=== PATIENT | male | born 1935 | race Caucasian/White ===

== ENCOUNTER 2017-08-03 12:44 | Outpatient (POV) | payer MEDICARE, SELFPAY | END 2017-08-03 15:35 | disposition home or self-care (01) | PROVIDERS: Family Provider Family Medicine; PCP Family Medicine; Visit Provider Urology | DX: N40.1 Benign prostatic hyperplasia with lower urinary tract symptoms (principal); N39.41 Urge incontinence; R39.15 Urgency of urination | CPT/HCPCS: 99212 ==

== ENCOUNTER → 2017-08-25 12:16 | Outpatient (CLI) | payer MEDICARE, SELFPAY | PROVIDERS: PCP Family Medicine; Visit Provider Family Medicine | DX: I49.9 Cardiac arrhythmia, unspecified (principal) | CPT/HCPCS: 93225; 93226 ==

== ENCOUNTER → 2017-09-28 17:46 | Outpatient (REF) | payer MEDICARE, SELFPAY | LOC: LAB 17:46 | PROVIDERS: Visit Provider Urology | CPT/HCPCS: 87086 ==

== ENCOUNTER → 2017-09-30 08:48 | Outpatient (CLI) | payer MEDICARE, SELFPAY ==
--- NOTE | 2017-09-30 09:00 | CT_ITS ---
CT abdomen pelvis wo con CLINICAL INDICATION: Abdominal pain and pressure. History of colon cancer ITS.REASON: ABD PAIN, HX COLON CA ORDERING PHYSICIAN: Jefferson Jensen MD PATIENT AGE: 82 years COMPARISON: None TECHNIQUE: Axial images obtained with sagittal and coronal reformats. PROCEDURE: Oral Contrast: None IV Contrast: None . FINDINGS: Lower chest: Small medium-sized right pleural effusion with right basilar atelectasis/consolidation. Small left pleural effusion. Coronary artery calcifications. Abdomen and pelvis: Prior cholecystectomy. No focal liver lesion or biliary dilatation. The spleen and right adrenal gland are unremarkable. Left adrenal gland is enlarged measuring 3.4 x 2.8 cm previously measuring 3.1 x 2.4 cm and measuring near water density and could be due to an adenoma or an indolent metastatic focus. The right adrenal gland has an unremarkable appearance. There is pancreatic atrophy. Diffuse atherosclerotic calcification involves the splenic artery. 5 cm right renal cyst. No hydronephrosis or obstructing renal or ureteral calculi. 2.4 cm left renal cyst. No intestinal obstruction or free air. Unremarkable appendix. No evidence of diverticulitis. Urinary bladder is decompressed with minimal thickening of the wall nonspecific. Prostate is slightly prominent at 4.8 cm. There is a small right periumbilical hernia. This contains a loop of small bowel without evidence of obstruction or inflammation. No acute bony anomalies. There is generalized spondylosis of the lumbar spine. IMPRESSION: 1. Bilateral pleural effusions right basilar atelectasis/consolidation 2. Coronary artery calcification consistent coronary artery disease. 3. Slightly enlarging left adrenal nodule. This nodule has been present since 11/09/2012 with only slight increase in size since 09/01/2013 and similar in size compared to 11/09/2012. This could be due to an adenoma or a treated metastatic focus. 4. Small right periumbilical hernia containing a loop of small bowel without evidence of obstruction
== END ==
PROVIDERS: Family Provider Family Medicine; PCP Family Medicine; Visit Provider Urology
DX: R10.9 Unspecified abdominal pain (principal); Z85.038 Personal history of other malignant neoplasm of large intestine
CPT/HCPCS: 74176

== ENCOUNTER → 2017-10-01 16:03 | Outpatient (CLI) | payer MEDICARE, SELFPAY ==
--- NOTE | 2017-10-01 16:09 | XR_ITS ---
XR chest 2V HISTORY: ITS.REASON: CONGESTIVE HEART FAILURE ORDERING PHYSICIAN: Pedro Tenorio MD PATIENT AGE: 82 years COMPARISON: 11/09/2012 FINDINGS: There is mild cardiomegaly. No obvious CHF.. There is a small right pleural effusion with blunting of the right CP angle and mild atelectatic changes in the right lung base. There is ankylosis of the thoracic spine. No lobar consolidation or collapse. IMPRESSION: 1. Cardiomegaly. 2. Small right pleural effusion with right basilar atelectasis
== END ==
PROVIDERS: PCP Family Medicine; Visit Provider Family Medicine
DX: I50.9 Heart failure, unspecified (principal)
CPT/HCPCS: 71046

== ENCOUNTER 2017-12-14 12:20 | Outpatient (CLI) | payer MEDICARE, SELFPAY ==
[2017-12-14 13:05] VITALS: BP 137/70; PULSE 69; RESP 18; TEMP 36.6; O2SAT 97
[2017-12-14 13:35] VITALS: BP 132/67; PULSE 67; RESP 18; O2SAT 98
[2017-12-14 13:45] VITALS: BP 133/71; PULSE 68; RESP 18; TEMP 36.7; O2SAT 97
== END 2017-12-14 13:50 | disposition home or self-care (01) ==
LOC: INF 12:22
PROVIDERS: PCP Family Medicine; Visit Provider Family Medicine
DX: N39.0 Urinary tract infection, site not specified (principal)
CPT/HCPCS: 96365; J1335

== ENCOUNTER 2017-12-15 11:13 | Outpatient (CLI) | payer MEDICARE, SELFPAY ==
[2017-12-15 11:10] VITALS: BMI 38.0
[2017-12-15 11:36] LABS: Anion Gap 13.8 mEq/L (5-15); Blood Urea Nitrogen 38 mg/dL (7-18); Carbon Dioxide 24 mmol/L (21.0-32.0); Chloride 107 mmol/L (98-107); Creatinine Clearance Estimated 49 mL/min (0-300); Creatinine,Serum 2.08 mg/dL (0.70-1.30); Estimated Glomerular Filt Rate 31 ml/min (>60); GFR (African American) 37 ML/MIN (>60); Glucose 177 mg/dL (74-106); Potassium 4.8 mmoL/L (3.5-5.1); Sodium 140 mmol/L (136-145)
[2017-12-15 11:55] VITALS: BP 128/68; PULSE 63; RESP 18; TEMP 36.6; O2SAT 98
[2017-12-15 12:25] VITALS: BP 132/66; PULSE 60; RESP 18; O2SAT 99
[2017-12-15 12:40] VITALS: BP 130/69; PULSE 64; RESP 18; O2SAT 98
== END 2017-12-15 12:45 | disposition home or self-care (01) ==
LOC: INF 11:13
PROVIDERS: Family Provider Family Medicine; PCP Family Medicine; Visit Provider Family Medicine
DX: N39.0 Urinary tract infection, site not specified (principal)
CPT/HCPCS: 36415; 80048; 96365; J1335

== ENCOUNTER 2017-12-16 11:00 | Outpatient (CLI) | payer MEDICARE, SELFPAY ==
[2017-12-16 11:15] VITALS: BP 142/59; PULSE 61; RESP 18; TEMP 36.6; O2SAT 95
[2017-12-16 12:05] VITALS: BP 120/64; PULSE 65; RESP 18; TEMP 36.6; O2SAT 96
== END 2017-12-16 12:15 | disposition home or self-care (01) ==
LOC: INF 11:00
PROVIDERS: Family Provider Family Medicine; PCP Family Medicine; Visit Provider Family Medicine
DX: N39.0 Urinary tract infection, site not specified (principal)
CPT/HCPCS: 96365; J1335

== ENCOUNTER 2017-12-17 11:00 | Outpatient (CLI) | payer MEDICARE, SELFPAY ==
[2017-12-17 11:55] VITALS: BP 105/65; PULSE 66; RESP 20; TEMP 36.9; O2SAT 96
[2017-12-17 12:25] VITALS: BP 106/55; PULSE 68; RESP 20; TEMP 36.9; O2SAT 96
== END 2017-12-17 16:30 | disposition home or self-care (01) ==
LOC: INF 11:39
PROVIDERS: Family Provider Family Medicine; PCP Family Medicine; Visit Provider Family Medicine
DX: N39.0 Urinary tract infection, site not specified (principal)
CPT/HCPCS: 96365; J1335

== ENCOUNTER 2017-12-18 11:00 | Outpatient (CLI) | payer MEDICARE, SELFPAY ==
[2017-12-18 11:15] VITALS: BP 119/61; PULSE 56; RESP 20; TEMP 36.4; O2SAT 97
== END 2017-12-18 11:45 | disposition home or self-care (01) ==
LOC: INF 11:02
PROVIDERS: Family Provider Family Medicine; PCP Family Medicine; Visit Provider Family Medicine
DX: N39.0 Urinary tract infection, site not specified (principal)
CPT/HCPCS: 96365; J1335

== ENCOUNTER 2017-12-19 10:50 | Outpatient (CLI) | payer MEDICARE, SELFPAY ==
[2017-12-19 10:55] VITALS: BP 136/58; PULSE 59; RESP 18; TEMP 36.1; O2SAT 99
== END 2017-12-19 12:07 | disposition home or self-care (01) ==
LOC: INF 10:51
PROVIDERS: Family Provider Family Medicine; PCP Family Medicine; Visit Provider Family Medicine
DX: N39.0 Urinary tract infection, site not specified (principal)
CPT/HCPCS: 96365; J1335

== ENCOUNTER 2017-12-20 11:15 | Outpatient (CLI) | payer MEDICARE, SELFPAY ==
[2017-12-20 11:30] VITALS: BP 150/72; PULSE 84; RESP 18; TEMP 36.4; O2SAT 100
[2017-12-20 12:00] VITALS: BP 146/71; PULSE 81; RESP 18; O2SAT 98
[2017-12-20 12:20] VITALS: BP 139/70; PULSE 83; RESP 18; O2SAT 99
== END 2017-12-20 12:25 | disposition home or self-care (01) ==
LOC: INF 11:15
PROVIDERS: Family Provider Family Medicine; PCP Family Medicine; Visit Provider Family Medicine
DX: N39.0 Urinary tract infection, site not specified (principal)
CPT/HCPCS: 96365; J1335

== ENCOUNTER 2018-08-16 10:43 | Outpatient (CLI) | payer MEDICARE, SELFPAY ==
[2018-08-16 11:05] VITALS: BMI 38.7
[2018-08-16 11:55] VITALS: BP 153/87; PULSE 87; RESP 18; TEMP 36.6; O2SAT 96
[2018-08-16 12:05] LABS: Creatinine Clearance Estimated 54 mL/min (50-200); Creatinine,Serum 1.91 mg/dL (0.70-1.30); Estimated Glomerular Filt Rate 34 ml/min (>60); GFR (African American) 41 ML/MIN (>60)
[2018-08-16 12:25] VITALS: BP 150/82; PULSE 88; RESP 18; O2SAT 97
[2018-08-16 12:40] VITALS: BP 151/88; PULSE 84; RESP 18; O2SAT 97
== END 2018-08-16 12:45 | disposition home or self-care (01) ==
LOC: INF 10:47
PROVIDERS: PCP Family Medicine; Visit Provider Family Medicine
DX: N39.0 Urinary tract infection, site not specified (principal)
CPT/HCPCS: 82565; 96365; J1335

== ENCOUNTER 2018-08-17 10:40 | Outpatient (CLI) | payer MEDICARE, SELFPAY ==
[2018-08-17 11:00] VITALS: BP 143/85; PULSE 78; RESP 18; TEMP 36.4
[2018-08-17 11:30] VITALS: BP 142/79; PULSE 78; RESP 18
[2018-08-17 11:40] VITALS: BP 155/99; PULSE 84; RESP 18
== END 2018-08-17 12:15 | disposition home or self-care (01) ==
LOC: INF 10:50
PROVIDERS: Visit Provider Family Medicine
DX: N39.0 Urinary tract infection, site not specified (principal)
CPT/HCPCS: 96365; J1335

== ENCOUNTER 2018-08-18 10:50 | Outpatient (CLI) | payer MEDICARE, SELFPAY ==
[2018-08-18 11:25] VITALS: BP 133/85; PULSE 86; RESP 18; O2SAT 95
[2018-08-18 11:55] VITALS: BP 152/80; PULSE 82; RESP 18; O2SAT 95
[2018-08-18 12:25] VITALS: BP 152/82; PULSE 82; RESP 18; O2SAT 95
[2018-08-18 12:30] VITALS: BP 155/87; PULSE 87; RESP 18
== END 2018-08-18 12:30 | disposition home or self-care (01) ==
LOC: INF 11:12
PROVIDERS: Visit Provider Family Medicine
DX: N39.0 Urinary tract infection, site not specified (principal)
CPT/HCPCS: 96365; J1335

== ENCOUNTER 2018-08-19 11:34 | Outpatient (CLI) | payer MEDICARE, SELFPAY ==
[2018-08-19 11:35] VITALS: BP 120/74; PULSE 68; RESP 20; TEMP 36.9; O2SAT 95
[2018-08-19 12:45] VITALS: BP 118/74; PULSE 68; RESP 20; TEMP 36.9; O2SAT 95
== END 2018-08-19 13:10 | disposition home or self-care (01) ==
LOC: INF 11:34
PROVIDERS: Visit Provider Family Medicine
DX: N39.0 Urinary tract infection, site not specified (principal)
CPT/HCPCS: 96365; J1335

== ENCOUNTER → 2018-08-20 11:16 | Outpatient (CLI) | payer MEDICARE, SELFPAY ==
[2018-08-20 11:16] VITALS: BP 137/81; PULSE 84; RESP 16; TEMP 36.7; O2SAT 97
[2018-08-20 11:30] VITALS: BP 149/74; PULSE 88; RESP 16; TEMP 36.6; O2SAT 98
== END ==
PROVIDERS: PCP Family Medicine; Visit Provider Family Medicine
DX: N39.0 Urinary tract infection, site not specified (principal)
CPT/HCPCS: 96365; J1335

== ENCOUNTER → 2018-08-21 11:21 | Outpatient (CLI) | payer MEDICARE, SELFPAY ==
[2018-08-21 11:21] VITALS: BP 141/79; PULSE 85; RESP 18; O2SAT 97
[2018-08-21 11:40] VITALS: BP 153/83; PULSE 86; RESP 18; TEMP 36.6; O2SAT 96
[2018-08-21 12:00] VITALS: BMI 43.8
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
[2018-08-21 12:16] LABS: Basophils # 0.1 K/mm3 (0-0.2); Eosinophils # 0.2 K/mm3 (0.0-0.4); Eosinophils % 2.2 % (0.1-12.0); Hematocrit 37.7 % (42.0-52.0); Hemoglobin 11.7 g/dL (14.1-18.0); Lymphocytes # 1.3 K/mm3 (0.7-4.5); Lymphocytes % 15.9 % (10-50); Mean Corpuscular HGB Conc 31.1 g/dL (31.8-35.4); Mean Platelet Volume 11.5 fl (7.4-10.4); Monocytes # 0.7 K/mm3 (0.1-1.0); Monocytes % 8.9 % (1.7-9.3); Neutrophils # 5.8 K/mm3 (1.8-7.8); Platelet Count 92 K/mm3 (142-424); Red Blood Count 4.19 M/mm3 (4.60-6.20); Red Cell Distribution Width 16.8 % (11.5-17.5); White Blood Count 8.1 K/mm3 (4.8-10.8)
[2018-08-21 12:27] LABS: Alanine Aminotransferase 19 U/L (12-78); Albumin Level 3.6 gm/dL (3.4-5.0); Albumin/Globulin Ratio 0.9 (1.1-1.8); Alkaline Phosphatase 122 U/L (46-116); Anion Gap 13.3 mEq/L (5-15); Aspartate Amino Transferase 15 U/L (15-37); Bilirubin,Total 0.5 mg/dL (0.2-1.0); Blood Urea Nitrogen 28 mg/dL (7-18); Calcium 8.9 mg/dL (8.5-10.1); Carbon Dioxide 27 mmol/L (21.0-32.0); Chloride 102 mmol/L (98-107); Creatinine Clearance Estimated 26 mL/min (50-200); Creatinine,Serum 1.99 mg/dL (0.70-1.30); Estimated Glomerular Filt Rate 32 ml/min (>60); GFR (African American) 39 ML/MIN (>60); Globulin 3.8 gm/dl (1.3-3.2); Glucose 222 mg/dL (74-106); Potassium 4.3 mmoL/L (3.5-5.1); Sodium 138 mmol/L (136-145); Total Protein,Serum 7.4 gm/dL (6.4-8.2)
== END ==
PROVIDERS: Internal Medicine Adolescent Medicine; PCP Family Medicine; Visit Provider Family Medicine
DX: N39.0 Urinary tract infection, site not specified (principal); R53.1 Weakness
CPT/HCPCS: 80053; 85025; 96365; G0463; J1335

== ENCOUNTER 2018-08-22 11:43 | Outpatient (CLI) | payer MEDICARE, SELFPAY ==
[2018-08-22 12:16] VITALS: BP 118/62; PULSE 87; RESP 18; TEMP 36.9; O2SAT 94
[2018-08-22 12:46] VITALS: BP 121/64; PULSE 84; RESP 18; O2SAT 95
[2018-08-22 13:00] VITALS: BP 119/61; PULSE 81; RESP 18; O2SAT 95
== END 2018-08-22 13:00 | disposition home or self-care (01) ==
LOC: INF 11:43
PROVIDERS: Visit Provider Family Medicine
DX: N39.0 Urinary tract infection, site not specified (principal)
CPT/HCPCS: 96365; J1335

== ENCOUNTER → 2018-09-27 10:59 | Outpatient (CLI) | payer MEDICARE, SELFPAY ==
--- NOTE | 2018-09-27 11:05 | XR_ITS ---
XR chest 2V HISTORY: Shortness of air, wheezing ITS.REASON: SOB ORDERING PHYSICIAN: Kannan Cook MD PATIENT AGE: 83 years COMPARISON: 10/01/2017 FINDINGS: There is cardiomegaly without failure. Right-sided pleural effusion/thickening once again noted and has progressed compared to the previous study. There is increased density right lung base which may related to compressive atelectasis. The left lung is clear. No acute bony findings. IMPRESSION: Increase in size right pleural effusion with right basilar atelectasis and cardiomegaly
== END ==
PROVIDERS: PCP Family Medicine; Visit Provider Family Medicine
DX: R06.02 Shortness of breath (principal)
CPT/HCPCS: 71046

== ENCOUNTER → 2018-10-07 10:06 | Outpatient (CLI) | payer MEDICARE, SELFPAY ==
--- NOTE | 2018-10-07 11:30 | CT_ITS ---
CT chest wo con HISTORY: Cough, shortness of air, chest pain ITS.REASON: SOA ORDERING PHYSICIAN: Kannan Cook MD PATIENT AGE: 83 years COMPARISON: 09/27/2018 Technique: Axial images obtained following without contrast.. Sagittal, and coronal and 3-D reformatted images are also generated and reviewed. All CT scans at the facility use one or more dose reduction, viz: automated exposure control, ma/kV adjustment per patient size (including targeted exams where dose is matched to indication, i.e. head), or iterative reconstruction technique. FINDINGS: No mediastinal or hilar mass or adenopathy. Coronary artery calcifications are present. No pericardial effusion. There is a medium-sized right pleural effusion with atelectatic changes in the right lung base. Consolidation and/or atelectatic changes present in the right lower lobe posteriorly. Calcified granuloma is present in the left lower lobe with minimal atelectasis or fibrosis in the lingula. 3-D images of the ribs show an old left fourth rib fracture anteriorly. There are degenerative changes in the thoracic spine. Upper abdominal images show diffuse calcification of the splenic artery. There is been prior cholecystectomy. No evidence of aortic aneurysm. IMPRESSION: 1. Medium-sized right pleural effusion with right basilar atelectasis/consolidation 2. Old left fourth rib fracture. 3. Coronary artery disease
== END ==
PROVIDERS: PCP Family Medicine; Visit Provider Family Medicine
DX: R06.02 Shortness of breath (principal)
CPT/HCPCS: 71250

== ENCOUNTER → 2018-10-25 09:21 | Outpatient (CLI) | payer MEDICARE, SELFPAY ==
--- NOTE | 2018-10-25 09:26 | XR_ITS ---
XR chest 2V HISTORY: Shortness of breath ITS.REASON: SOB ORDERING PHYSICIAN: Kannan Cook MD PATIENT AGE: 83 years COMPARISON: 28/09/1918 FINDINGS: The cardiomediastinal silhouette and pulmonary vascularity are within normal limits. There is increasing density at the right lung with increasing sized loculated effusion. The pleural thickening is greater in the right apex and in the right lung base laterally compared to the previous exam. There is increased density in the right lower lobe which may be related to underlying consolidation or atelectatic change.. The left lung is clear. No acute bony abnormalities. IMPRESSION: Enlarging right pleural effusion with suggestion of loculation along the lateral and superior hemithorax with increasing right lower lobe atelectasis or infiltrate
== END ==
PROVIDERS: PCP Family Medicine; Visit Provider Family Medicine
DX: R06.02 Shortness of breath (principal)
CPT/HCPCS: 71046

== ENCOUNTER → 2018-11-09 10:31 | Outpatient (CLI) | payer MEDICARE, SELFPAY ==
--- NOTE | 2018-11-09 10:38 | XR_ITS ---
XR chest 2V HISTORY: Shortness of breath ITS.REASON: PULMONARY ASPIRATION Z87.09 ORDERING PHYSICIAN: Kannan Cook MD PATIENT AGE: 83 years COMPARISON: PA and lateral chest 10/25/2018 FINDINGS: The lung carbajal are well expanded. There is diffuse opacity right hilar region and right lower lung field similar to the previous study however there has been interval decrease in size of the somewhat loculated pleural effusion seen along the right chest wall on the previous study. Minimal fluid remains in the right costophrenic angle. Infiltrate still remains in right lower lobe and may be minimal right middle lobe infiltrate as well. The right lung field left lung field are clear. Cardiac size is normal and the vascularity is normal. IMPRESSION: Persistent right perihilar and right lower lobe pneumonia with possible right middle lobe infiltrate as well along with small right pleural effusion but there has been some decrease in size of the pleural effusion from the previous study
== END ==
PROVIDERS: PCP Family Medicine; Visit Provider Family Medicine
DX: Z87.09 Personal history of other diseases of the respiratory system (principal)
CPT/HCPCS: 71046

== ENCOUNTER → 2018-11-16 08:20 | Outpatient (CLI) | payer MEDICARE, SELFPAY ==
--- NOTE | 2018-11-16 08:23 | CT_ITS ---
CT chest wo con HISTORY: Colon cancer, pleural effusion ITS.REASON: PLEURAL EFFUSION ORDERING PHYSICIAN: Zenon Booker MD PATIENT AGE: 83 years COMPARISON: 10/07/2018 Technique: Axial images obtained following the administration of 75 mL of Optiray 350 . Sagittal, and coronal reformatted images are also generated and reviewed. All CT scans at the facility use one or more dose reduction, viz: automated exposure control, ma/kV adjustment per patient size (including targeted exams where dose is matched to indication, i.e. head), or iterative reconstruction technique. FINDINGS: There are scattered small nodes within the mediastinum as before. There are coronary artery calcifications. Normal heart size. No evidence of pericardial effusion. Small right-sided pleural effusion with consolidation/volume loss of the right lower lobe once again noted having a somewhat oval contour in the right lung base posteriorly and may be related to rounded atelectasis somewhat similar compared to the previous exam. Atelectatic or fibrotic changes are present in the right middle lobe and there is pleural thickening in the right lung base anteriorly. The pleural effusion is slightly smaller.. Left lung remains clear. There is calcified granuloma in the left lower lobe IMPRESSION: Persistent but slightly improved right-sided pleural effusion with persistent consolidation/rounded atelectasis in the right lower lobe posteriorly. There remains pleural thickening in the right lung base anteriorly not significant changed.
== END ==
PROVIDERS: PCP Family Medicine; Visit Provider Thoracic Surgery (Cardiothoracic Vascular Surgery)
DX: J90 Pleural effusion, not elsewhere classified (principal)
CPT/HCPCS: 71250

== ENCOUNTER 2018-12-07 09:05 | Outpatient (CLI) | payer MEDICARE, SELFPAY ==
[2018-12-07] VITALS (18 sets, daily range): BP systolic 106–138; BP diastolic 45–79; PULSE 72–83; RESP 16–18; TEMP 36.4–36.9; BMI 36.6
[2018-12-07 10:03] LABS: Hematocrit 24.4 % (42.0-52.0); Hemoglobin 8.1 g/dL (14.1-18.0)
--- NOTE | 2018-12-07 11:48 | PC.NURSE ---
1140 - TRANSFUSION STARTED AT 100 ML/HR AT THIS TIME.
--- NOTE | 2018-12-07 12:29 | PC.NURSE ---
1210 - INCREASED RATE TO 150 ML/HR AT THIS TIME.
--- NOTE | 2018-12-07 12:53 | PC.NURSE ---
1240 - INCREASED RATE TO 200 ML/HR AT THIS TIME.
--- NOTE | 2018-12-07 14:03 | PC.NURSE ---
1400 - TRANSFUSION RATE AT 100 ML/HR AT THIS TIME.
--- NOTE | 2018-12-07 14:37 | PC.NURSE ---
1430 - INCREASED RATE TO 150 ML/HR AT THIS TIME.
--- NOTE | 2018-12-07 15:17 | PC.NURSE ---
1500 - INCREASED RATE TO 200 ML/HR AT THIS TIME.
[2018-12-07 17:19] LABS: Hematocrit 27.6 % (42.0-52.0)
[2018-12-07 17:20] LABS: Hemoglobin 9.6 g/dL (14.1-18.0)
== END 2018-12-07 17:05 | disposition home or self-care (01) ==
LOC: INF 09:14
PROVIDERS: Visit Provider Family Medicine
DX: D64.9 Anemia, unspecified (principal)
CPT/HCPCS: 36430; 85014; 85018; 86850; P9016

== ENCOUNTER 2018-12-27 12:48 | Outpatient (CLI) | payer MEDICARE, SELFPAY ==
[2018-12-27 15:06] VITALS: BMI 38.0
--- NOTE | 2018-12-27 15:08 | XR_ITS ---
XR chest portable HISTORY: ITS.REASON: picc line placement ORDERING PHYSICIAN: Referral Provider, PATIENT AGE: 83 years COMPARISON: 11/09/2018 FINDINGS: Left upper extremity PICC line is present with the tip in the region of the superior vena cava. There remains cardiomegaly with right lower lobe atelectasis or infiltrate with effusion slightly improved. Left lung is clear. IMPRESSION: PICC line tip in region of the superior vena cava. Slight improvement in the right lower lobe airspace disease with effusion
--- NOTE | 2018-12-27 15:31 | PC.NURSE ---
Spoke with Dr Thompson at [id number]. Dr Thompson verified pt PICC is in good placement.
[2018-12-27 15:32] VITALS: BP 165/95; PULSE 97; RESP 18; TEMP 36.6; O2SAT 98
[2018-12-27 16:02] VITALS: BP 159/91; PULSE 91; RESP 18; O2SAT 97
[2018-12-27 16:06] LABS: Anion Gap 13.5 mEq/L (5-15); Blood Urea Nitrogen 23 mg/dL (7-18); Calcium 8.4 mg/dL (8.5-10.1); Carbon Dioxide 25 mmol/L (21.0-32.0); Chloride 101 mmol/L (98-107); Creatinine Clearance Estimated 61 mL/min (50-200); Creatinine,Serum 1.66 mg/dL (0.70-1.30); Estimated Glomerular Filt Rate 40 ml/min (>60); GFR (African American) 48 ML/MIN (>60); Glucose 370 mg/dL (74-106); Potassium 3.5 mmoL/L (3.5-5.1); Sodium 136 mmol/L (136-145)
[2018-12-27 16:20] VITALS: BP 161/89; PULSE 90; RESP 18; O2SAT 97
== END 2018-12-27 16:20 | disposition home or self-care (01) ==
LOC: INF 12:48
PROVIDERS: Referring Provider Internal Medicine Infectious Disease
DX: N39.0 Urinary tract infection, site not specified (principal)
CPT/HCPCS: 36569; 71045; 80048; 96365; C1751; J1335

== ENCOUNTER → 2018-12-28 13:07 | Outpatient (CLI) | payer MEDICARE, SELFPAY ==
[2018-12-28 13:35] VITALS: BP 159/83; PULSE 90; RESP 20; O2SAT 94
== END ==
PROVIDERS: Visit Provider Internal Medicine Infectious Disease
DX: N39.0 Urinary tract infection, site not specified (principal)
CPT/HCPCS: 96365; J1335

== ENCOUNTER 2018-12-29 11:25 | Outpatient (CLI) | payer MEDICARE, SELFPAY ==
[2018-12-29 11:45] VITALS: BP 105/68; PULSE 80; RESP 18; O2SAT 97
[2018-12-29 12:15] VITALS: BP 134/86; PULSE 92; RESP 18
[2018-12-29 12:40] VITALS: BP 127/71; PULSE 86; RESP 18
== END 2018-12-29 12:55 | disposition home or self-care (01) ==
LOC: INF 11:32
PROVIDERS: Visit Provider Internal Medicine Infectious Disease
DX: N39.0 Urinary tract infection, site not specified (principal)
CPT/HCPCS: 96365; J1335

== ENCOUNTER 2018-12-30 11:15 | Outpatient (CLI) | payer MEDICARE, SELFPAY ==
[2018-12-30 11:55] VITALS: BP 127/74; PULSE 85; RESP 20; O2SAT 95
[2018-12-30 12:50] VITALS: BP 130/74; PULSE 86; RESP 20
== END 2018-12-30 12:50 | disposition home or self-care (01) ==
LOC: INF 11:18
PROVIDERS: Visit Provider Internal Medicine Infectious Disease
DX: N39.0 Urinary tract infection, site not specified (principal)
CPT/HCPCS: 96365; J1335

== ENCOUNTER 2018-12-31 10:59 | Outpatient (CLI) | payer MEDICARE, SELFPAY ==
[2018-12-31 11:16] VITALS: BP 148/86; PULSE 85; RESP 18; TEMP 36.8; O2SAT 98
[2018-12-31 12:35] VITALS: BP 179/80; PULSE 96; RESP 20; O2SAT 95
== END 2018-12-31 12:35 | disposition home or self-care (01) ==
LOC: INF 11:02
PROVIDERS: PCP Family Medicine; Visit Provider Internal Medicine Infectious Disease
DX: N39.0 Urinary tract infection, site not specified (principal)
CPT/HCPCS: 96365; J1335

== ENCOUNTER → 2019-01-01 11:02 | Outpatient (CLI) | payer MEDICARE, SELFPAY ==
[2019-01-01 11:30] VITALS: BP 130/70; PULSE 67; RESP 18; O2SAT 97
[2019-01-01 12:48] VITALS: BP 135/70; PULSE 70; RESP 18; O2SAT 97
== END ==
PROVIDERS: Visit Provider Internal Medicine Infectious Disease
DX: N39.0 Urinary tract infection, site not specified (principal)
CPT/HCPCS: 96365; J1335

== ENCOUNTER → 2019-01-02 10:26 | Outpatient (CLI) | payer MEDICARE, SELFPAY ==
[2019-01-02 10:47] VITALS: BP 129/79; PULSE 78; RESP 16; TEMP 36.6; O2SAT 98; BMI 36.8
[2019-01-02 12:01] VITALS: BP 142/72; PULSE 89; RESP 18; TEMP 36.7; O2SAT 95
== END ==
PROVIDERS: PCP Family Medicine; Visit Provider Family Medicine
DX: N39.0 Urinary tract infection, site not specified (principal)
CPT/HCPCS: 96365; G0463; J1335

== ENCOUNTER 2019-01-03 09:15 | Outpatient (CLI) | payer MEDICARE, SELFPAY ==
[2019-01-03 09:05] VITALS: BP 141/72; PULSE 77; RESP 18; TEMP 36.6; O2SAT 97
[2019-01-03 09:19] VITALS: BMI 36.8
[2019-01-03 09:36] LABS: Anion Gap 14.8 mEq/L (5-15); Blood Urea Nitrogen 21 mg/dL (7-18); Calcium 8.3 mg/dL (8.5-10.1); Carbon Dioxide 25 mmol/L (21.0-32.0); Chloride 104 mmol/L (98-107); Creatinine Clearance Estimated 55 mL/min (50-200); Creatinine,Serum 1.76 mg/dL (0.70-1.30); Estimated Glomerular Filt Rate 37 ml/min (>60); GFR (African American) 45 ML/MIN (>60); Glucose 213 mg/dL (74-106); Potassium 3.8 mmoL/L (3.5-5.1); Sodium 140 mmol/L (136-145)
[2019-01-03 10:08] VITALS: BP 130/73; PULSE 78; RESP 18; TEMP 36.6; O2SAT 97
[2019-01-03 11:02] VITALS: BP 142/90; PULSE 78; RESP 18; TEMP 36.6; O2SAT 97
== END 2019-01-03 11:02 | disposition home or self-care (01) ==
LOC: INF 09:15
PROVIDERS: Visit Provider Internal Medicine Infectious Disease
DX: N39.0 Urinary tract infection, site not specified (principal)
CPT/HCPCS: 80048; 96365; J1335

== ENCOUNTER 2019-01-04 11:05 | Outpatient (CLI) | payer MEDICARE, SELFPAY ==
[2019-01-04 11:15] VITALS: BP 137/73; PULSE 84; RESP 18; TEMP 36.5; O2SAT 96
[2019-01-04 11:45] VITALS: BP 131/71; PULSE 88; RESP 18; O2SAT 97
[2019-01-04 12:00] VITALS: BP 138/76; PULSE 86; RESP 18; O2SAT 97
== END 2019-01-04 12:00 | disposition home or self-care (01) ==
LOC: INF 11:08
PROVIDERS: Visit Provider Internal Medicine Infectious Disease
DX: N39.0 Urinary tract infection, site not specified (principal)
CPT/HCPCS: 96365; J1335

== ENCOUNTER 2019-01-05 11:20 | Outpatient (CLI) | payer MEDICARE, SELFPAY ==
[2019-01-05 11:10] VITALS: BP 147/66; PULSE 82; RESP 18; TEMP 36.6; O2SAT 94
[2019-01-05 11:32] VITALS: BMI 36.8
[2019-01-05 11:35] VITALS: BP 110/63; PULSE 81; RESP 18; TEMP 36.6; O2SAT 95
[2019-01-05 12:06] VITALS: BP 136/68; PULSE 81; RESP 18; O2SAT 93
[2019-01-05 12:39] VITALS: BP 132/77; PULSE 81; RESP 18; O2SAT 94
== END 2019-01-05 12:39 | disposition home or self-care (01) ==
LOC: INF 11:28
PROVIDERS: Visit Provider Internal Medicine Infectious Disease
DX: N39.0 Urinary tract infection, site not specified (principal); B96.29 Other Escherichia coli [E. coli] as the cause of diseases classified elsewhere; J90 Pleural effusion, not elsewhere classified; J94.2 Hemothorax; D72.823 Leukemoid reaction; D62 Acute posthemorrhagic anemia; E11.22 Type 2 diabetes mellitus with diabetic chronic kidney disease; I12.9 Hypertensive chronic kidney disease with stage 1 through stage 4 chronic kidney disease, or unspecified chronic kidney disease; N18.3 Chronic kidney disease, stage 3 (moderate); E66.09 Other obesity due to excess calories
CPT/HCPCS: 96365; J1335

== ENCOUNTER 2019-01-06 11:20 | Outpatient (CLI) | payer MEDICARE, SELFPAY ==
[2019-01-06 12:15] VITALS: BP 161/73; PULSE 84; RESP 16; O2SAT 96
[2019-01-06 13:15] VITALS: BP 149/76; PULSE 82; RESP 18; O2SAT 97
== END 2019-01-06 13:09 | disposition home or self-care (01) ==
LOC: INF 11:27
PROVIDERS: Visit Provider Internal Medicine Infectious Disease
DX: N39.0 Urinary tract infection, site not specified (principal); B96.20 Unspecified Escherichia coli [E. coli] as the cause of diseases classified elsewhere; J90 Pleural effusion, not elsewhere classified; J94.2 Hemothorax; D72.823 Leukemoid reaction; E11.22 Type 2 diabetes mellitus with diabetic chronic kidney disease; I12.9 Hypertensive chronic kidney disease with stage 1 through stage 4 chronic kidney disease, or unspecified chronic kidney disease; N18.3 Chronic kidney disease, stage 3 (moderate); E66.09 Other obesity due to excess calories; D62 Acute posthemorrhagic anemia
CPT/HCPCS: 96365; J1335

== ENCOUNTER → 2019-01-07 11:10 | Outpatient (CLI) | payer MEDICARE, SELFPAY ==
[2019-01-07 11:10] VITALS: BP 152/76; PULSE 71; RESP 18; TEMP 36.8; O2SAT 99
[2019-01-07 11:36] VITALS: BP 152/76; PULSE 71; RESP 18; TEMP 36.8; O2SAT 99; BMI 27.1
== END ==
PROVIDERS: Visit Provider Internal Medicine Infectious Disease
DX: N39.0 Urinary tract infection, site not specified (principal); Z16.12 Extended spectrum beta lactamase (ESBL) resistance
CPT/HCPCS: 96365; J1335

== ENCOUNTER → 2019-01-08 11:13 | Outpatient (CLI) | payer MEDICARE, SELFPAY ==
[2019-01-08 11:14] VITALS: BP 145/61; BP 156/69; PULSE 79; PULSE 81; RESP 16; RESP 18; TEMP 36.6; TEMP 36.9; O2SAT 96; O2SAT 97
== END ==
PROVIDERS: PCP Internal Medicine Infectious Disease; Visit Provider Internal Medicine Infectious Disease
DX: N39.0 Urinary tract infection, site not specified (principal); Z16.12 Extended spectrum beta lactamase (ESBL) resistance
CPT/HCPCS: 96365; J1335

== ENCOUNTER 2019-01-09 11:19 | Outpatient (CLI) | payer MEDICARE, SELFPAY ==
[2019-01-09 11:26] VITALS: BP 154/76; PULSE 83; RESP 18; TEMP 36.5; O2SAT 96
[2019-01-09 11:56] VITALS: BP 151/72; PULSE 81; RESP 18; O2SAT 97
[2019-01-09 12:17] VITALS: BMI 36.8
[2019-01-09 12:20] VITALS: BP 150/79; PULSE 80; RESP 18; O2SAT 97
[2019-01-09 12:32] LABS: Basophils # 0.1 K/mm3 (0-0.2); Basophils % 0.7 % (0.1-2.0); Eosinophils # 0.2 K/mm3 (0.0-0.4); Eosinophils % 2.9 % (0.1-12.0); Hematocrit 30.5 % (42.0-52.0); Hemoglobin 10.4 g/dL (14.1-18.0); Lymphocytes # 1.1 K/mm3 (0.7-4.5); Lymphocytes % 16.6 % (10-50); Mean Corpuscular HGB Conc 34.2 g/dL (31.8-35.4); Mean Corpuscular Hemoglobin 28.8 pg (27.0-31.2); Mean Corpuscular Volume 84.1 fl (80-94); Mean Platelet Volume 11.4 fl (7.4-10.4); Monocytes # 0.9 K/mm3 (0.1-1.0); Monocytes % 12.7 % (1.7-9.3); Neutrophils # 4.7 K/mm3 (1.8-7.8); Neutrophils % 67.2 % (37.0-80.0); Red Blood Count 3.63 M/mm3 (4.60-6.20); Red Cell Distribution Width 16.4 % (11.5-17.5); White Blood Count 6.9 K/mm3 (4.8-10.8)
[2019-01-09 12:50] LABS: Alanine Aminotransferase 17 U/L (12-78); Albumin Level 2.8 gm/dL (3.4-5.0); Albumin/Globulin Ratio 0.7 (1.1-1.8); Alkaline Phosphatase 136 U/L (46-116); Aspartate Amino Transferase 16 U/L (15-37); Bilirubin,Total 0.3 mg/dL (0.2-1.0); Blood Urea Nitrogen 21 mg/dL (7-18); C-Reactive Protein 3.5 mg/L (0.0-0.9); Calcium 8.4 mg/dL (8.5-10.1); Carbon Dioxide 26 mmol/L (21.0-32.0); Chloride 102 mmol/L (98-107); Creatinine Clearance Estimated 55 mL/min (50-200); Creatinine,Serum 1.78 mg/dL (0.70-1.30); Estimated Glomerular Filt Rate 37 ml/min (>60); GFR (African American) 44 ML/MIN (>60); Globulin 3.9 gm/dl (1.3-3.2); Glucose 325 mg/dL (74-106); Sodium 137 mmol/L (136-145); Total Protein,Serum 6.7 gm/dL (6.4-8.2)
[2019-01-09 13:33] LABS: Erythrocyte Sedimentation Rate 90 mm/hr (0-20)
[2019-01-09 13:53] LABS: Platelet Count 71 K/mm3 (142-424)
== END 2019-01-09 12:41 | disposition home or self-care (01) ==
LOC: INF 11:19
PROVIDERS: Visit Provider Internal Medicine Infectious Disease
DX: N39.0 Urinary tract infection, site not specified (principal); B96.29 Other Escherichia coli [E. coli] as the cause of diseases classified elsewhere; J90 Pleural effusion, not elsewhere classified; J94.2 Hemothorax; D72.823 Leukemoid reaction; D62 Acute posthemorrhagic anemia; E11.22 Type 2 diabetes mellitus with diabetic chronic kidney disease; I12.9 Hypertensive chronic kidney disease with stage 1 through stage 4 chronic kidney disease, or unspecified chronic kidney disease; N18.3 Chronic kidney disease, stage 3 (moderate); E66.09 Other obesity due to excess calories
CPT/HCPCS: 80053; 85025; 85651; 86140; 96365; J1335

== ENCOUNTER 2019-01-10 12:26 | Outpatient (CLI) | payer MEDICARE, SELFPAY ==
[2019-01-10 12:37] VITALS: BP 142/71; PULSE 87; RESP 18; TEMP 36.6; O2SAT 97
[2019-01-10 13:30] VITALS: BP 132/78; PULSE 79; RESP 18; TEMP 36.7; O2SAT 97
== END 2019-01-10 13:30 | disposition home or self-care (01) ==
LOC: INF 12:26
PROVIDERS: Visit Provider Internal Medicine Infectious Disease
DX: N39.0 Urinary tract infection, site not specified (principal); B96.20 Unspecified Escherichia coli [E. coli] as the cause of diseases classified elsewhere; J90 Pleural effusion, not elsewhere classified; J94.2 Hemothorax; D62 Acute posthemorrhagic anemia; E11.22 Type 2 diabetes mellitus with diabetic chronic kidney disease; I12.9 Hypertensive chronic kidney disease with stage 1 through stage 4 chronic kidney disease, or unspecified chronic kidney disease; N18.3 Chronic kidney disease, stage 3 (moderate); E66.09 Other obesity due to excess calories
CPT/HCPCS: 96365; J1335

== ENCOUNTER 2019-01-11 11:13 | Outpatient (CLI) | payer MEDICARE, SELFPAY ==
[2019-01-11 11:46] VITALS: BP 167/87; PULSE 73; RESP 18; TEMP 36.7; O2SAT 96
[2019-01-11 12:16] VITALS: BP 159/82; PULSE 76; RESP 18; O2SAT 97
[2019-01-11 12:46] VITALS: BP 129/85; PULSE 91; RESP 18; O2SAT 97
== END 2019-01-11 12:46 | disposition home or self-care (01) ==
LOC: INF 11:16
PROVIDERS: Visit Provider Internal Medicine Infectious Disease
DX: N39.0 Urinary tract infection, site not specified (principal); B96.20 Unspecified Escherichia coli [E. coli] as the cause of diseases classified elsewhere; J90 Pleural effusion, not elsewhere classified; J94.2 Hemothorax; D72.823 Leukemoid reaction; D62 Acute posthemorrhagic anemia; E11.22 Type 2 diabetes mellitus with diabetic chronic kidney disease; I12.9 Hypertensive chronic kidney disease with stage 1 through stage 4 chronic kidney disease, or unspecified chronic kidney disease; N18.3 Chronic kidney disease, stage 3 (moderate); E66.9 Obesity, unspecified
CPT/HCPCS: 96365; J1335

== ENCOUNTER 2019-01-12 11:29 | Outpatient (CLI) | payer MEDICARE, SELFPAY ==
[2019-01-12 11:38] VITALS: BP 131/71; PULSE 88; RESP 18; TEMP 36.7; O2SAT 97
[2019-01-12 12:15] VITALS: BP 129/74; PULSE 82; RESP 18; TEMP 36.6; O2SAT 98
== END 2019-01-12 12:20 | disposition home or self-care (01) ==
LOC: INF 11:29
PROVIDERS: Visit Provider Internal Medicine Infectious Disease
DX: N39.0 Urinary tract infection, site not specified (principal); Z16.12 Extended spectrum beta lactamase (ESBL) resistance
CPT/HCPCS: 96365; J1335

== ENCOUNTER 2019-01-13 13:25 | Outpatient (CLI) | payer MEDICARE, SELFPAY ==
[2019-01-13 12:25] VITALS: BP 155/88; PULSE 68; RESP 20; TEMP 36.5; O2SAT 98
[2019-01-13 13:25] VITALS: BP 155/88; PULSE 68; RESP 20; TEMP 36.9; O2SAT 95
--- NOTE | 2019-01-13 13:27 | US_ITS ---
US Kidney CLINICAL INDICATION: Hypertension ORDERING PHYSICIAN: Jefferson Jensen MD PATIENT AGE: 83 years Comparison: None FINDINGS: The right kidney is 12 x 6 x 5 cm. No hydronephrosis. 5 cm cyst is present along the mid aspect of the right kidney anteriorly. The left kidney is 11 x 5 x 6 cm. No hydronephrosis. Mild cortical thinning. A 3 cm cyst is present along the upper aspect of the left kidney. IMPRESSION: 1. No hydronephrosis. 2. Bilateral renal cysts
== END 2019-01-13 13:35 | disposition home or self-care (01) ==
LOC: INF 13:25
PROVIDERS: PCP Family Medicine; Visit Provider Urology
DX: N39.0 Urinary tract infection, site not specified (principal); B96.29 Other Escherichia coli [E. coli] as the cause of diseases classified elsewhere; Z16.12 Extended spectrum beta lactamase (ESBL) resistance; N18.3 Chronic kidney disease, stage 3 (moderate); J90 Pleural effusion, not elsewhere classified; J94.2 Hemothorax; E11.22 Type 2 diabetes mellitus with diabetic chronic kidney disease; E66.09 Other obesity due to excess calories; Z79.4 Long term (current) use of insulin
CPT/HCPCS: 76770; 96365; J1335

== ENCOUNTER 2019-01-14 11:02 | Outpatient (CLI) | payer MEDICARE, SELFPAY ==
[2019-01-14 11:17] VITALS: BP 111/66; PULSE 85; RESP 16; TEMP 36.6; O2SAT 97
[2019-01-14 12:30] VITALS: BP 115/70; PULSE 83; RESP 16; O2SAT 97
== END 2019-01-14 12:50 | disposition home or self-care (01) ==
PROVIDERS: PCP Family Medicine; Visit Provider Urology
DX: N39.0 Urinary tract infection, site not specified (principal); Z16.12 Extended spectrum beta lactamase (ESBL) resistance; B96.29 Other Escherichia coli [E. coli] as the cause of diseases classified elsewhere; J90 Pleural effusion, not elsewhere classified; J94.2 Hemothorax; D72.823 Leukemoid reaction; D62 Acute posthemorrhagic anemia; N18.3 Chronic kidney disease, stage 3 (moderate); E11.22 Type 2 diabetes mellitus with diabetic chronic kidney disease; Z79.4 Long term (current) use of insulin
CPT/HCPCS: 96365; J1335

== ENCOUNTER 2019-01-15 11:29 | Outpatient (CLI) | payer MEDICARE, SELFPAY ==
[2019-01-15 11:44] VITALS: BP 129/66; PULSE 87; RESP 17; O2SAT 98; BMI 36.8
== END 2019-01-15 12:40 | disposition home or self-care (01) ==
LOC: INF 11:30
PROVIDERS: PCP Family Medicine; Visit Provider Urology
DX: N39.0 Urinary tract infection, site not specified (principal); Z16.12 Extended spectrum beta lactamase (ESBL) resistance; B96.29 Other Escherichia coli [E. coli] as the cause of diseases classified elsewhere; J90 Pleural effusion, not elsewhere classified; J94.2 Hemothorax; D72.823 Leukemoid reaction; D62 Acute posthemorrhagic anemia; N18.3 Chronic kidney disease, stage 3 (moderate); Z72.0 Tobacco use
CPT/HCPCS: 96365; J1335

== ENCOUNTER 2019-01-16 11:10 | Outpatient (CLI) | payer MEDICARE, SELFPAY ==
[2019-01-16 11:11] VITALS: BMI 36.8
[2019-01-16 11:29] LABS: Basophils % 0.7 % (0.1-2.0); Eosinophils # 0.2 K/mm3 (0.0-0.4); Eosinophils % 3.7 % (0.1-12.0); Hematocrit 30.8 % (42.0-52.0); Hemoglobin 10.2 g/dL (14.1-18.0); Lymphocytes # 1.1 K/mm3 (0.7-4.5); Lymphocytes % 20.5 % (10-50); Mean Corpuscular Hemoglobin 27.4 pg (27.0-31.2); Monocytes # 0.7 K/mm3 (0.1-1.0); Monocytes % 13.2 % (1.7-9.3); Neutrophils # 3.4 K/mm3 (1.8-7.8); Neutrophils % 61.8 % (37.0-80.0); Platelet Count 89 K/mm3 (142-424); Red Blood Count 3.71 M/mm3 (4.60-6.20); Red Cell Distribution Width 16.7 % (11.5-17.5); White Blood Count 5.5 K/mm3 (4.8-10.8)
[2019-01-16 11:53] LABS: Alanine Aminotransferase 22 U/L (12-78); Albumin Level 2.9 gm/dL (3.4-5.0); Albumin/Globulin Ratio 0.7 (1.1-1.8); Alkaline Phosphatase 141 U/L (46-116); Aspartate Amino Transferase 21 U/L (15-37); Bilirubin,Total 0.4 mg/dL (0.2-1.0); Blood Urea Nitrogen 24 mg/dL (7-18); C-Reactive Protein 1.2 mg/L (0.0-0.9); Calcium 8.5 mg/dL (8.5-10.1); Carbon Dioxide 24 mmol/L (21.0-32.0); Chloride 106 mmol/L (98-107); Creatinine Clearance Estimated 63 mL/min (50-200); Creatinine,Serum 1.56 mg/dL (0.70-1.30); Estimated Glomerular Filt Rate 43 ml/min (>60); GFR (African American) 52 ML/MIN (>60); Glucose 159 mg/dL (74-106); Sodium 140 mmol/L (136-145); Total Protein,Serum 6.9 gm/dL (6.4-8.2)
[2019-01-16 12:00] VITALS: BP 156/82; PULSE 77; RESP 20; O2SAT 97
[2019-01-16 12:37] LABS: Erythrocyte Sedimentation Rate 119 mm/hr (0-20)
[2019-01-16 13:00] VITALS: BP 159/82; PULSE 85; RESP 18; O2SAT 95
== END 2019-01-16 13:00 | disposition home or self-care (01) ==
LOC: INF 11:10
PROVIDERS: Internal Medicine Infectious Disease; Visit Provider Urology
DX: N39.0 Urinary tract infection, site not specified (principal); Z16.12 Extended spectrum beta lactamase (ESBL) resistance
CPT/HCPCS: 80053; 85025; 85651; 86140; 96365

== ENCOUNTER 2019-01-17 08:58 | Outpatient (CLI) | payer MEDICARE, SELFPAY ==
[2019-01-17 08:58] VITALS: BP 158/73; PULSE 88; RESP 20; TEMP 36.3; O2SAT 97
[2019-01-17 10:05] VITALS: BP 141/75; PULSE 79; RESP 20; TEMP 36.4; O2SAT 97
== END 2019-01-17 10:05 | disposition home or self-care (01) ==
LOC: INF 10:30
PROVIDERS: Visit Provider Internal Medicine Infectious Disease
DX: N39.0 Urinary tract infection, site not specified (principal); Z16.12 Extended spectrum beta lactamase (ESBL) resistance; D72.823 Leukemoid reaction; D62 Acute posthemorrhagic anemia
CPT/HCPCS: 96365

== ENCOUNTER 2019-01-18 11:05 | Outpatient (CLI) | payer MEDICARE, SELFPAY ==
[2019-01-18 11:05] VITALS: BMI 36.8
[2019-01-18 11:24] VITALS: BP 122/72; PULSE 83; RESP 18; TEMP 36.8; O2SAT 97
[2019-01-18 11:50] VITALS: BP 159/88; PULSE 67; RESP 18; TEMP 36.8; O2SAT 98
[2019-01-18 12:10] VITALS: BP 141/79; PULSE 71; RESP 18; TEMP 36.8; O2SAT 97
== END 2019-01-18 12:10 | disposition home or self-care (01) ==
LOC: INF 15:10
PROVIDERS: Visit Provider Internal Medicine Infectious Disease
DX: N39.0 Urinary tract infection, site not specified (principal); Z16.12 Extended spectrum beta lactamase (ESBL) resistance
CPT/HCPCS: 96365; J1335

== ENCOUNTER 2019-01-19 11:00 | Outpatient (CLI) | payer MEDICARE, SELFPAY ==
[2019-01-19 11:20] VITALS: BP 169/93; PULSE 77; RESP 18
[2019-01-19 12:00] VITALS: BP 140/73; PULSE 80; RESP 18
== END 2019-01-19 12:25 | disposition home or self-care (01) ==
LOC: INF 11:10
PROVIDERS: Visit Provider Internal Medicine Infectious Disease
DX: N39.0 Urinary tract infection, site not specified (principal); Z16.12 Extended spectrum beta lactamase (ESBL) resistance; D72.823 Leukemoid reaction; Z86.19 Personal history of other infectious and parasitic diseases
CPT/HCPCS: 96365; J1335

== ENCOUNTER 2019-01-20 11:17 | Outpatient (CLI) | payer MEDICARE, SELFPAY ==
[2019-01-20 11:27] VITALS: BP 140/81; PULSE 74; RESP 20
[2019-01-20 12:10] VITALS: BP 144/89; PULSE 76; RESP 18
== END 2019-01-20 12:35 | disposition home or self-care (01) ==
LOC: INF 11:17
PROVIDERS: Visit Provider Internal Medicine Infectious Disease
DX: N39.0 Urinary tract infection, site not specified (principal); Z16.12 Extended spectrum beta lactamase (ESBL) resistance
CPT/HCPCS: 96365; J1335

== ENCOUNTER 2019-01-21 11:12 | Outpatient (CLI) | payer MEDICARE, SELFPAY ==
[2019-01-21 11:12] VITALS: BP 141/74; PULSE 81; RESP 17; TEMP 36.7; O2SAT 98
[2019-01-21 11:28] VITALS: BP 142/76; PULSE 75; RESP 17; TEMP 36.8; O2SAT 97
[2019-01-21 12:24] VITALS: BP 141/74; PULSE 81; RESP 17; TEMP 36.7; O2SAT 98
== END 2019-01-21 12:24 | disposition home or self-care (01) ==
LOC: INF 11:13
PROVIDERS: PCP Family Medicine; Visit Provider Internal Medicine Infectious Disease
DX: N39.0 Urinary tract infection, site not specified (principal); Z16.12 Extended spectrum beta lactamase (ESBL) resistance
CPT/HCPCS: 96365; J1335

== ENCOUNTER → 2019-01-22 11:18 | Outpatient (CLI) | payer MEDICARE, SELFPAY ==
[2019-01-22 11:18] VITALS: BP 138/86; PULSE 88; RESP 18; TEMP 36.4; O2SAT 98
[2019-01-22 11:29] VITALS: BP 134/81; PULSE 79; RESP 18; TEMP 36.6; O2SAT 98
== END ==
PROVIDERS: PCP Family Medicine; Visit Provider Internal Medicine Infectious Disease
DX: N39.0 Urinary tract infection, site not specified (principal); Z16.12 Extended spectrum beta lactamase (ESBL) resistance
CPT/HCPCS: 96365; J1335

== ENCOUNTER → 2019-01-23 10:40 | Outpatient (CLI) | payer MEDICARE, SELFPAY ==
[2019-01-23 11:10] VITALS: BP 129/64; PULSE 83; RESP 18; O2SAT 97
[2019-01-23 12:10] VITALS: BP 159/78; PULSE 78; RESP 20; O2SAT 97
--- NOTE | 2019-01-23 14:30 | PC.NURSE ---
1430- office called to let us know they d/c'd pt's left upper arm picc and that pt is done with invanz infusions.
== END ==
PROVIDERS: Visit Provider Internal Medicine Infectious Disease
DX: N39.0 Urinary tract infection, site not specified (principal); Z16.12 Extended spectrum beta lactamase (ESBL) resistance
CPT/HCPCS: 96365; J1335

== ENCOUNTER → 2019-03-31 11:29 | Outpatient (CLI) | payer MEDICARE, SELFPAY ==
--- NOTE | 2019-03-31 11:37 | XR_ITS ---
PROCEDURE: XR FOOT WT BEARING LT 3V CLINICAL INDICATION: pain COMPARISON: No exams were available for comparison FINDINGS: No fracture or dislocation. No lytic or blastic change. There is normal mineralization. There are mild osteoarthritic changes of the 1st MTP joint. Flexion deformity involves the toes. There is mild pes planus. Fragmented enthesophytes present at the Achilles insertion Other findings:Calcaneal spur IMPRESSION: No acute finding Dictated by: Nicholas Thompson MD 03/31/2019 14:01 Signed by: <Electronically signed by Nicholas Thompson MD in [facility]> 03/31/2019 14:01
--- NOTE | 2019-03-31 11:37 | XR_ITS ---
PROCEDURE: XR FOOT WT BEARING RT 3V CLINICAL INDICATION: pain Toe pain COMPARISON: No exams were available for comparison FINDINGS: Mild osteoarthritic change of the 1st MTP joint. Flexion deformity of the toes. No lytic or blastic change. No bony erosive process. Prominent enthesophyte at the Achilles insertion with fragmentation of the enthesophyte. Prominent calcaneal spur with calcification along the plantar aponeurosis which may be seen with plantar fasciitis. IMPRESSION: Chronic changes as described above. No acute finding. Possible chronic plantar fasciitis. No acute bony erosive process evident Dictated by: Nicholas Thompson MD 03/31/2019 13:57 Signed by: <Electronically signed by Nicholas Thompson MD in [place]> 03/31/2019 13:57
== END ==
PROVIDERS: PCP Family Medicine; Visit Provider Podiatrist
DX: M79.671 Pain in right foot (principal)
CPT/HCPCS: 73630

== ENCOUNTER → 2019-05-08 10:16 | Outpatient (CLI) | payer MEDICARE, SELFPAY ==
--- NOTE | 2019-05-08 10:18 | US_ITS ---
APPROVED REPORT Exam Type: Lower Extremity Segmental Pressures [employer] Special Event Associate: Carito Aguilar RDCS Indications Claudication: Non-healing Ulcer: Edema CAD Risk Factors History of PAD: Hypertension CAD Hyperlipidemia Obesity Diabetes Pressures/Indices Right Indices Left Indices Brachial 140.00 mmHg Brachial 140.00 mmHg Low Thigh 161.00 mmHg 1.15 Low Thigh 173.00 mmHg 1.24 Calf 167.00 mmHg 1.19 Calf 176.00 mmHg 1.26 Ankle(PT) 159.00 mmHg 1.14 Ankle(PT) 142.00 mmHg 1.01 Ankle(DP) 153.00 mmHg 1.09 Ankle(DP) 138.00 mmHg 0.99 Digit 135.00 mmHg 0.96 Digit 119.00 mmHg 0.85 Findings R SUMI 1.1 L SUMI 1.0 R TBI 1.0 L TBI .9 NORMAL WAVEFORMS DIMINISHED DORSALES PEDIS PULSES Conclusion Normal SUMI's and TBI's NORMAL WAVEFORMS DIMINISHED DORSALES PEDIS PULSES Electronically signed by : Nicholas Thompson MD 05/15/2019 19:15:18
== END ==
PROVIDERS: PCP Family Medicine; Visit Provider Podiatrist
DX: R09.89 Other specified symptoms and signs involving the circulatory and respiratory systems (principal)
CPT/HCPCS: 93923

== ENCOUNTER → 2019-05-11 11:03 | Outpatient (CLI) | payer MEDICARE, SELFPAY ==
[2019-05-11 11:05] LABS: MANUAL DIFFERENTIAL MANUAL DIFFERENTIAL (MANUAL DIFF)
[2019-05-11 11:43] LABS: Basophils # 0.2 K/mm3 (0-0.2); Basophils % 1.4 % (0.1-2.0); Eosinophils # 0.3 K/mm3 (0.0-0.4); Eosinophils % 2.2 % (0.1-12.0); Hematocrit 34.2 % (42.0-52.0); Hemoglobin 10.8 g/dL (14.1-18.0); Lymphocytes # 1.9 K/mm3 (0.7-4.5); Lymphocytes % 14.4 % (10-50); Mean Corpuscular HGB Conc 31.6 g/dL (31.8-35.4); Mean Corpuscular Hemoglobin 27.8 pg (27.0-31.2); Mean Corpuscular Volume 87.9 fl (80-94); Monocytes # 1.3 K/mm3 (0.1-1.0); Monocytes % 10.1 % (1.7-9.3); Neutrophils # 9.3 K/mm3 (1.8-7.8); Neutrophils % 71.9 % (37.0-80.0); Platelet Count 97 K/mm3 (142-424); Red Blood Count 3.89 M/mm3 (4.60-6.20); Red Cell Distribution Width 16.1 % (11.5-17.5)
[2019-05-11 15:14] LABS: Alanine Aminotransferase 10 U/L (12-78); Albumin Level 3.6 gm/dL (3.4-5.0); Alkaline Phosphatase 118 U/L (46-116); Anion Gap 16.9 mEq/L (5-15); Aspartate Amino Transferase 11 U/L (15-37); Bilirubin,Total 0.3 mg/dL (0.2-1.0); Blood Urea Nitrogen 33 mg/dL (7-18); C-Reactive Protein 0.4 mg/dL (0.0-0.9); Calcium 8.6 mg/dL (8.5-10.1); Carbon Dioxide 22 mmol/L (21.0-32.0); Chloride 105 mmol/L (98-107); Creatinine,Serum 1.82 mg/dL (0.70-1.30); Estimated Glomerular Filt Rate 36 ml/min (>60); GFR (African American) 43 ML/MIN (>60); Globulin 3.6 gm/dl (1.3-3.2); Glucose 169 mg/dL (74-106); Potassium 3.9 mmoL/L (3.5-5.1); Sodium 140 mmol/L (136-145); Total Protein,Serum 7.2 gm/dL (6.4-8.2)
[2019-05-11 16:50] LABS: Erythrocyte Sedimentation Rate 74 mm/hr (0-20)
[2019-05-11 18:27] LABS: Eosinophils % 4 % (0-3); Hypochromasia 1+; Lymphocytes % 18 % (10-50); Monocytes % 8 % (2-9); Neutrophils % 60 % (42-76); Platelet Estimate Normal; Total Cells Counted 100
== END ==
PROVIDERS: Visit Provider Podiatrist
DX: E11.628 Type 2 diabetes mellitus with other skin complications (principal); E11.8 Type 2 diabetes mellitus with unspecified complications; Z79.4 Long term (current) use of insulin
CPT/HCPCS: 36415; 80053; 85007; 85014; 85018; 85048; 85049; 85651; 86140

== ENCOUNTER → 2019-05-24 12:17 | Outpatient (CLI) | payer MEDICARE, SELFPAY ==
[2019-05-24 12:34] LABS: Basophils # 0.2 K/mm3 (0-0.2); Basophils % 1.5 % (0.1-2.0); Eosinophils # 0.3 K/mm3 (0.0-0.4); Eosinophils % 1.9 % (0.1-12.0); Hematocrit 34.8 % (42.0-52.0); Hemoglobin 10.6 g/dL (14.1-18.0); Lymphocytes # 2.1 K/mm3 (0.7-4.5); Lymphocytes % 14.9 % (10-50); Mean Corpuscular HGB Conc 30.4 g/dL (31.8-35.4); Mean Corpuscular Hemoglobin 27.5 pg (27.0-31.2); Mean Corpuscular Volume 90.3 fl (80-94); Mean Platelet Volume 12.7 fl (7.4-10.4); Monocytes # 1.9 K/mm3 (0.1-1.0); Monocytes % 13.5 % (1.7-9.3); Neutrophils # 9.7 K/mm3 (1.8-7.8); Neutrophils % 68.3 % (37.0-80.0); Platelet Count 86 K/mm3 (142-424); Red Blood Count 3.86 M/mm3 (4.60-6.20); Red Cell Distribution Width 17.3 % (11.5-17.5); White Blood Count 14.2 K/mm3 (4.8-10.8)
[2019-05-24 13:42] LABS: C-Reactive Protein 1.2 mg/dL (0.0-0.9)
[2019-05-24 14:37] LABS: Erythrocyte Sedimentation Rate 53 mm/hr (0-20)
== END ==
PROVIDERS: Visit Provider Podiatrist
DX: Z51.89 Encounter for other specified aftercare (principal); R09.89 Other specified symptoms and signs involving the circulatory and respiratory systems
CPT/HCPCS: 36415; 85025; 85651; 86140

== ENCOUNTER → 2019-06-01 12:21 | Outpatient (CLI) | payer MEDICARE, SELFPAY ==
--- NOTE | 2019-06-01 12:25 | XR_ITS ---
PROCEDURE: XR FOOT WT BEARING RT 3V CLINICAL INDICATION: pain, wound on 2nd toe Second toe wound with pain COMPARISON: XR FOOT WT BEARING LT 3V from 03/31/2019 XR FOOT WT BEARING RT 3V from 03/31/2019 FINDINGS: Hammertoe deformity involves the 2nd 3rd and 4th toes. Mild osteoarthritic change 1st metatarsophalangeal joint and tarsal metatarsal junction. No obvious bony destructive process. Coarse calcification is present at the Achilles insertion and there is a prominent calcaneal spur. Other findings:None. IMPRESSION: No change hammertoe deformity with osteoarthritic changes Dictated by: Nicholas Thompson MD 06/01/2019 13:58 Electronically signed by Nicholas Thompson MD in [facility] 06/01/2019 13:58
== END ==
PROVIDERS: PCP Family Medicine; Visit Provider Podiatrist
DX: Z51.89 Encounter for other specified aftercare (principal); M79.671 Pain in right foot
CPT/HCPCS: 73630

== ENCOUNTER → 2019-06-27 16:06 | Outpatient (CLI) | payer MEDICARE, SELFPAY | PROVIDERS: Visit Provider Urology | DX: N39.0 Urinary tract infection, site not specified (principal) | CPT/HCPCS: 87086; 87088; 87186 ==

== ENCOUNTER 2019-07-03 09:05 | Outpatient (CLI) | payer MEDICARE, SELFPAY ==
[2019-07-03 11:36] VITALS: BMI 383097.4
--- NOTE | 2019-07-03 11:37 | XR_ITS ---
PROCEDURE: XR CHEST PORTABLE PICC PLAC CLINICAL HISTORY: PICC line placement PICC line placement COMPARISON: CXR2V XR chest 2V from 09/27/2018 CXR2V XR chest 2V from 10/25/2018 CXR2V XR chest 2V from 11/09/[address] chest wo con from 11/16/2018 FINDINGS: The cardiomediastinal silhouette and pulmonary vascularity are within normal limits. A PICC line has been inserted by the left subclavian approach. The tip is in satisfactory position in the region of the superior vena cava There are atelectatic changes in the right lower lobe. IMPRESSION: Good placement of PICC line Dictated by: Nicholas Thompson MD 07/03/2019 11:55 Electronically signed by Nicholas Thompson MD in [facility] 07/03/2019 11:55
[2019-07-03 12:03] LABS: Anion Gap 12.2 mEq/L (5-15); Blood Urea Nitrogen 39 mg/dL (7-18); Calcium 8.5 mg/dL (8.5-10.1); Carbon Dioxide 24 mmol/L (21.0-32.0); Chloride 107 mmol/L (98-107); Creatinine Clearance Estimated 44 mL/min (50-200); Creatinine,Serum 2.29 mg/dL (0.70-1.30); Estimated Glomerular Filt Rate 27 ml/min (>60); GFR (African American) 33 ML/MIN (>60); Glucose 124 mg/dL (74-106); Potassium 4.2 mmoL/L (3.5-5.1); Sodium 139 mmol/L (136-145)
[2019-07-03 12:25] VITALS: BP 134/70; PULSE 68; RESP 18; TEMP 36.7; O2SAT 98
[2019-07-03 12:55] VITALS: BP 136/69; PULSE 69; RESP 18; O2SAT 97
[2019-07-03 13:20] VITALS: BP 140/76; PULSE 78; RESP 18; O2SAT 97
== END 2019-07-03 13:20 | disposition home or self-care (01) ==
LOC: INF 09:05
PROVIDERS: Visit Provider Urology
DX: N39.0 Urinary tract infection, site not specified (principal)
CPT/HCPCS: 36569; 71045; 80048; 96365; C1751; J1335

== ENCOUNTER 2019-07-04 09:37 | Outpatient (CLI) | payer MEDICARE, SELFPAY ==
[2019-07-04 09:51] VITALS: BP 134/68; PULSE 77; RESP 18; TEMP 36.6; O2SAT 99
[2019-07-04 10:21] VITALS: BP 131/67; PULSE 79; RESP 18; O2SAT 98
[2019-07-04 10:30] VITALS: BP 129/67; PULSE 76; RESP 18; O2SAT 99
== END 2019-07-04 10:30 | disposition home or self-care (01) ==
LOC: INF 09:37
PROVIDERS: Visit Provider Urology
DX: N39.0 Urinary tract infection, site not specified (principal)
CPT/HCPCS: 96365; J1335

== ENCOUNTER 2019-07-05 09:12 | Outpatient (CLI) | payer MEDICARE, SELFPAY ==
[2019-07-05 09:22] VITALS: BP 130/54; PULSE 77; RESP 20; TEMP 36.6; O2SAT 97
[2019-07-05 09:52] VITALS: BP 144/59; PULSE 76; RESP 20; O2SAT 97
[2019-07-05 10:15] VITALS: BP 159/77; PULSE 77; RESP 20; O2SAT 98
== END 2019-07-05 10:15 | disposition home or self-care (01) ==
LOC: INF 09:12
PROVIDERS: Visit Provider Urology
DX: N39.0 Urinary tract infection, site not specified (principal)
CPT/HCPCS: 96365; J1335

== ENCOUNTER 2019-07-06 08:15 | Outpatient (CLI) | payer MEDICARE, SELFPAY ==
[2019-07-06 08:26] VITALS: BP 146/65; PULSE 72; RESP 18; TEMP 36.4; O2SAT 99; BMI 38.0
[2019-07-06 09:22] VITALS: BP 149/82; PULSE 62; RESP 16; TEMP 36.6; O2SAT 97
== END 2019-07-06 09:33 | disposition home health service (06) ==
PROVIDERS: PCP Family Medicine; Visit Provider Urology
DX: N39.0 Urinary tract infection, site not specified (principal)
CPT/HCPCS: 96365; J1335

== ENCOUNTER 2019-07-07 08:40 | Outpatient (CLI) | payer MEDICARE, SELFPAY ==
[2019-07-07 09:05] VITALS: BP 121/65; PULSE 77; RESP 22; O2SAT 98
[2019-07-07 09:40] VITALS: BP 127/64; PULSE 79; RESP 20
== END 2019-07-07 10:10 | disposition home or self-care (01) ==
LOC: INF 08:56
PROVIDERS: Visit Provider Urology
DX: N39.0 Urinary tract infection, site not specified (principal)
CPT/HCPCS: 96365; J1335

== ENCOUNTER → 2019-07-08 09:58 | Outpatient (CLI) | payer MEDICARE, SELFPAY ==
[2019-07-08 10:15] VITALS: BP 132/67; PULSE 89; RESP 20; TEMP 36.5; O2SAT 98
[2019-07-08 10:45] VITALS: BP 130/65; PULSE 78; RESP 18; TEMP 36.4; O2SAT 98
== END ==
PROVIDERS: PCP Family Medicine; Visit Provider Urology
DX: N39.0 Urinary tract infection, site not specified (principal)
CPT/HCPCS: 96365; J1335

== ENCOUNTER 2019-07-09 10:11 | Outpatient (CLI) | payer MEDICARE, SELFPAY ==
[2019-07-09 10:28] VITALS: BP 135/77; PULSE 72; RESP 18; TEMP 36.5; O2SAT 99
[2019-07-09 11:00] VITALS: BP 151/73; PULSE 76; RESP 18; TEMP 36.6; O2SAT 98
[2019-07-09 11:12] VITALS: BP 151/73; PULSE 76; RESP 18; TEMP 36.6; O2SAT 98
== END 2019-07-09 11:05 | disposition home or self-care (01) ==
LOC: INF 10:12
PROVIDERS: PCP Family Medicine; Visit Provider Urology
DX: N39.0 Urinary tract infection, site not specified (principal)
CPT/HCPCS: 96365; J1335

== ENCOUNTER 2019-07-10 08:57 | Outpatient (CLI) | payer MEDICARE, SELFPAY ==
[2019-07-10 09:00] VITALS: BP 126/74; PULSE 68; RESP 20; TEMP 36.9
[2019-07-10 09:32] LABS: Anion Gap 16.1 mEq/L (5-15); Blood Urea Nitrogen 44 mg/dL (7-18); Calcium 8.4 mg/dL (8.5-10.1); Carbon Dioxide 23 mmol/L (21.0-32.0); Chloride 106 mmol/L (98-107); Creatinine,Serum 1.98 mg/dL (0.70-1.30); Estimated Glomerular Filt Rate 32 ml/min (>60); GFR (African American) 39 ML/MIN (>60); Glucose 137 mg/dL (74-106); Potassium 4.1 mmoL/L (3.5-5.1); Sodium 141 mmol/L (136-145)
[2019-07-10 10:00] VITALS: BP 128/68; PULSE 73; RESP 20; TEMP 36.9; O2SAT 95
== END 2019-07-10 09:45 | disposition home or self-care (01) ==
LOC: INF 08:57
PROVIDERS: Visit Provider Urology
DX: N39.0 Urinary tract infection, site not specified (principal)
CPT/HCPCS: 80048; 96365; J1335

== ENCOUNTER 2019-07-11 09:07 | Outpatient (CLI) | payer MEDICARE, SELFPAY ==
[2019-07-11 09:18] VITALS: BP 130/68; PULSE 75; RESP 18; TEMP 36.7; O2SAT 97
[2019-07-11 09:35] VITALS: BP 133/72; PULSE 75; RESP 18; TEMP 36.7; O2SAT 96
[2019-07-11 10:05] VITALS: BP 138/69; PULSE 72; RESP 16; TEMP 36.8; O2SAT 97
== END 2019-07-11 10:25 | disposition home or self-care (01) ==
LOC: INF 09:07
PROVIDERS: Visit Provider Urology
DX: N39.0 Urinary tract infection, site not specified (principal)
CPT/HCPCS: 96365; J1335

== ENCOUNTER 2019-07-12 10:01 | Outpatient (CLI) | payer MEDICARE, SELFPAY ==
[2019-07-12 10:14] VITALS: BP 145/76; PULSE 82; RESP 18; TEMP 36.6; O2SAT 96
[2019-07-12 11:36] VITALS: BP 137/84; PULSE 90; RESP 18
== END 2019-07-12 11:36 | disposition home or self-care (01) ==
LOC: INF 10:02
PROVIDERS: Visit Provider Urology
DX: N39.0 Urinary tract infection, site not specified (principal)
CPT/HCPCS: 96365; J1335

== ENCOUNTER 2019-07-13 13:39 | Outpatient (CLI) | payer MEDICARE, SELFPAY ==
[2019-07-13 13:57] VITALS: BP 139/82; PULSE 79; RESP 18; TEMP 36.5; O2SAT 98
[2019-07-13 14:35] VITALS: BP 140/79; PULSE 80; RESP 18; TEMP 36.1; O2SAT 97
== END 2019-07-13 14:45 | disposition home or self-care (01) ==
LOC: INF 13:39
PROVIDERS: Visit Provider Urology
DX: N39.0 Urinary tract infection, site not specified (principal)
CPT/HCPCS: 96365; J1335

== ENCOUNTER 2019-07-14 10:45 | Outpatient (CLI) | payer MEDICARE, SELFPAY ==
[2019-07-14 11:20] VITALS: BP 133/71; PULSE 68; RESP 20; TEMP 36.9; O2SAT 95
[2019-07-14 11:50] VITALS: BP 132/70; PULSE 68; RESP 20; TEMP 36.9; O2SAT 95
== END 2019-07-14 12:00 | disposition home or self-care (01) ==
LOC: INF 10:45
PROVIDERS: Visit Provider Urology
DX: N39.0 Urinary tract infection, site not specified (principal)
CPT/HCPCS: 96365; J1335

== ENCOUNTER → 2019-07-15 10:27 | Outpatient (CLI) | payer MEDICARE, SELFPAY ==
[2019-07-15 10:20] VITALS: BMI 38.3
[2019-07-15 10:30] VITALS: BP 131/70; PULSE 76; RESP 20; TEMP 36.6; O2SAT 92
[2019-07-15 13:09] VITALS: BP 137/73; PULSE 81; RESP 22; TEMP 36.7; O2SAT 98
== END ==
PROVIDERS: PCP Family Medicine; Visit Provider Urology
DX: N39.0 Urinary tract infection, site not specified (principal)
CPT/HCPCS: 96365

== ENCOUNTER 2019-07-16 10:44 | Outpatient (CLI) | payer MEDICARE, SELFPAY ==
[2019-07-16 11:00] VITALS: BP 135/64; PULSE 77; RESP 20; TEMP 36.7; O2SAT 97
[2019-07-16 12:22] VITALS: BP 151/79; PULSE 90; RESP 20; TEMP 36.6; O2SAT 97
== END 2019-07-16 12:22 | disposition home or self-care (01) ==
LOC: INF 10:45
PROVIDERS: PCP Family Medicine; Visit Provider Urology
DX: N39.0 Urinary tract infection, site not specified (principal)
CPT/HCPCS: 96365; J1335

== ENCOUNTER 2019-07-18 14:05 | Outpatient (CLI) | payer MEDICARE, SELFPAY ==
[2019-07-18 14:40] VITALS: BP 132/76; PULSE 69; RESP 18; TEMP 36.6; O2SAT 97
== END 2019-07-18 14:40 | disposition home or self-care (01) ==
LOC: INF 14:06
PROVIDERS: Visit Provider Urology
DX: N39.0 Urinary tract infection, site not specified (principal)
CPT/HCPCS: 96523

== ENCOUNTER → 2019-07-18 16:28 | Outpatient (CLI) | payer MEDICARE, SELFPAY | PROVIDERS: Visit Provider Urology | DX: N30.20 Other chronic cystitis without hematuria (principal) | CPT/HCPCS: 87086; 96523 ==

== ENCOUNTER → 2019-07-21 12:29 | Outpatient (CLI) | payer MEDICARE, SELFPAY | END | disposition home or self-care (01) | LOC: INF 12:29 | PROVIDERS: Visit Provider Urology | DX: Z45.2 Encounter for adjustment and management of vascular access device (principal) | CPT/HCPCS: G0463 ==

== ENCOUNTER → 2019-12-12 10:08 | Outpatient (CLI) | payer MEDICARE, SELFPAY ==
--- NOTE | 2019-12-12 10:31 | XR_ITS ---
PROCEDURE: XR FOOT WT BEARING RT 3V CLINICAL INDICATION: right second toe wound Pain COMPARISON: XR FOOT WT BEARING LT 3V from 03/31/2019 XR FOOT WT BEARING RT 3V from 03/31/2019 XR FOOT WT BEARING RT 3V from 06/01/2019 FINDINGS: There are mild osteoarthritic changes of the 1st metatarsophalangeal joint with mild hallux valgus. Hammertoe deformity involves all toes. Bandage artifact is present at the PIP joint of the 2nd digit. No obvious bony erosive process. There are mild osteoarthritic changes of the foot with a prominent calcaneal spur and a prominent Achilles enthesophyte with lucency at the base of the enthesophyte. There is generalized vascular calcification. Other findings:None. IMPRESSION: Hammertoe deformity with hallux valgus and generalized vascular calcification. No significant change Dictated by: Nicholas Thompson MD 12/12/2019 13:39 Electronically signed by Nicholas Thompson MD in [facility] 12/12/2019 13:39
[2019-12-12 10:57] LABS: Basophils # 0.5 K/mm3 (0-0.2); Basophils % 5.4 % (0.1-2.0); Eosinophils # 0.2 K/mm3 (0.0-0.4); Eosinophils % 1.9 % (0.1-12.0); Hematocrit 34.4 % (42.0-52.0); Hemoglobin 11.4 g/dL (14.1-18.0); Lymphocytes # 1.8 K/mm3 (0.7-4.5); Lymphocytes % 20.2 % (10-50); Mean Corpuscular HGB Conc 33.2 g/dL (31.8-35.4); Mean Corpuscular Hemoglobin 28.5 pg (27.0-31.2); Mean Corpuscular Volume 85.8 fl (80-94); Mean Platelet Volume 12.7 fl (7.4-10.4); Monocytes # 1.2 K/mm3 (0.1-1.0); Monocytes % 14.2 % (1.7-9.3); Neutrophils # 5.6 K/mm3 (1.8-7.8); Neutrophils % 63.8 % (37.0-80.0); Platelet Count 91 K/mm3 (142-424); Red Blood Count 4.01 M/mm3 (4.60-6.20); Red Cell Distribution Width 16.6 % (11.5-17.5); White Blood Count 8.7 K/mm3 (4.8-10.8)
[2019-12-12 11:25] LABS: Chloride 106 mmol/L (98-107)
[2019-12-12 11:26] LABS: Potassium 4.7 mmoL/L (3.5-5.1); Sodium 139 mmol/L (136-145)
[2019-12-12 11:28] LABS: Alanine Aminotransferase 17 U/L (12-78); Alkaline Phosphatase 96 U/L (38-126); Anion Gap 14.7 mEq/L (5-15); Aspartate Amino Transferase 25 U/L (17-59); Bilirubin,Total 0.5 mg/dl (0.2-1.3); Blood Urea Nitrogen 28 mg/dl (9-20); Carbon Dioxide 23 mmol/L (22.0-30.0); Estimated Glomerular Filt Rate 36 ml/min (>60); GFR (African American) 44 ML/MIN (>60)
[2019-12-12 11:29] LABS: Albumin Level 4.1 g/dl (3.5-5.0); Albumin/Globulin Ratio 1.4 (1.1-1.8); Calcium 9.2 mg/dl (8.4-10.2); Glucose 228 mg/dl (74-100); Total Protein,Serum 7.1 g/dl (6.3-8.2)
[2019-12-12 11:34] LABS: C-Reactive Protein 2.9 mg/L (0-4)
[2019-12-12 12:14] LABS: Erythrocyte Sedimentation Rate 76 mm/hr (0-20)
[2019-12-12 13:23] LABS: Hemoglobin A1C 7.3 % (4.0-6.0)
== END ==
PROVIDERS: Visit Provider Podiatrist
DX: E11.9 Type 2 diabetes mellitus without complications (principal); L84 Corns and callosities; M20.41 Other hammer toe(s) (acquired), right foot; M20.42 Other hammer toe(s) (acquired), left foot
CPT/HCPCS: 36415; 73630; 80053; 83036; 85025; 85651; 86140; 87070; 87077; 87186; 87205

== ENCOUNTER → 2020-01-09 18:23 | Outpatient (CLI) | payer MEDICARE, SELFPAY | PROVIDERS: Visit Provider Nurse Practitioner | DX: E11.628 Type 2 diabetes mellitus with other skin complications (principal) | CPT/HCPCS: 87070; 87077; 87186; 87205 ==

== ENCOUNTER → 2020-02-27 11:13 | Outpatient (CLI) | payer MEDICARE, SELFPAY ==
[2020-02-27 11:37] LABS: Basophils # 0.2 K/mm3 (0-0.2); Basophils % 1.6 % (0.1-2.0); Eosinophils # 0.2 K/mm3 (0.0-0.4); Eosinophils % 1.1 % (0.1-12.0); Hematocrit 35.7 % (42.0-52.0); Hemoglobin 11.4 g/dL (14.1-18.0); Lymphocytes % 14.2 % (10-50); Mean Corpuscular HGB Conc 31.9 g/dL (31.8-35.4); Mean Corpuscular Hemoglobin 29.1 pg (27.0-31.2); Mean Corpuscular Volume 91.2 fl (80-94); Mean Platelet Volume 12.5 fl (7.4-10.4); Monocytes # 1.5 K/mm3 (0.1-1.0); Monocytes % 10.8 % (1.7-9.3); Neutrophils % 72.4 % (37.0-80.0); Platelet Count 95 K/mm3 (142-424); Red Blood Count 3.92 M/mm3 (4.60-6.20); Red Cell Distribution Width 16.7 % (11.5-17.5); White Blood Count 13.8 K/mm3 (4.8-10.8)
[2020-02-27 12:00] LABS: Erythrocyte Sedimentation Rate 32 mm/hr (0-20)
[2020-02-27 12:44] LABS: Alanine Aminotransferase 19 U/L (12-78); Albumin Level 4.1 g/dl (3.5-5.0); Albumin/Globulin Ratio 1.3 (1.1-1.8); Alkaline Phosphatase 117 U/L (38-126); Anion Gap 12.4 mEq/L (5-15); Aspartate Amino Transferase 22 U/L (17-59); Bilirubin,Total 0.4 mg/dl (0.2-1.3); Blood Urea Nitrogen 31 mg/dl (9-20); Calcium 9.1 mg/dl (8.4-10.2); Carbon Dioxide 26 mmol/L (22.0-30.0); Chloride 107 mmol/L (98-107); Estimated Glomerular Filt Rate 39 ml/min (>60); GFR (African American) 47 ML/MIN (>60); Globulin 3.2 g/dL (1.3-3.2); Glucose 203 mg/dl (74-100); Potassium 4.4 mmoL/L (3.5-5.1); Sodium 141 mmol/L (136-145); Total Protein,Serum 7.3 g/dl (6.3-8.2)
[2020-02-27 12:50] LABS: C-Reactive Protein 3.1 mg/L (0-4)
== END ==
PROVIDERS: Visit Provider Nurse Practitioner
DX: Z51.89 Encounter for other specified aftercare (principal); E11.621 Type 2 diabetes mellitus with foot ulcer; L97.511 Non-pressure chronic ulcer of other part of right foot limited to breakdown of skin
CPT/HCPCS: 36415; 80053; 85025; 85651; 86140

== ENCOUNTER → 2020-04-02 12:04 | Outpatient (CLI) | payer MEDICARE, SELFPAY ==
--- NOTE | 2020-04-02 12:09 | XR_ITS ---
PROCEDURE: XR FOOT WT BEARING RT 3V CLINICAL INDICATION: non-healing right 2nd toe wound COMPARISON: No exams were available for comparison FINDINGS: No fracture or dislocation. No lytic or blastic change. There is normal mineralization. There are hammertoe deformities of the 2nd through 5th toes. There is no significant soft tissue swelling of the 2nd toe. The plantar arch is normal. There is a prominent spur of the calcaneus at the insertion of the Achilles tendon and there is either an avulse spur at the insertion of the Achilles tendon or there is prominent ossification within the Achilles tendon near the insertion. IMPRESSION: Hammertoe deformities as described Dictated by: Dr. Isaiah Antonio MD 04/02/2020 13:48 Dr. Isaiah Antonio MD in [facility] 04/02/2020 13:48
== END ==
PROVIDERS: PCP Family Medicine; Visit Provider Nurse Practitioner
DX: L97.511 Non-pressure chronic ulcer of other part of right foot limited to breakdown of skin (principal); E11.621 Type 2 diabetes mellitus with foot ulcer
CPT/HCPCS: 73630

== ENCOUNTER → 2020-04-02 17:11 | Outpatient (CLI) | payer MEDICARE, SELFPAY | PROVIDERS: Visit Provider Nurse Practitioner | DX: E11.621 Type 2 diabetes mellitus with foot ulcer (principal); L97.511 Non-pressure chronic ulcer of other part of right foot limited to breakdown of skin | CPT/HCPCS: 73630; 87070; 87077; 87186; 87205 ==

== ENCOUNTER → 2020-04-30 12:48 | Outpatient (CLI) | payer MEDICARE, SELFPAY ==
[2020-04-30 13:10] LABS: Basophils # 0.2 K/mm3 (0-0.2); Basophils % 1.5 % (0.1-2.0); Eosinophils # 0.1 K/mm3 (0.0-0.4); Eosinophils % 0.9 % (0.1-12.0); Hematocrit 36.2 % (42.0-52.0); Lymphocytes # 2.1 K/mm3 (0.7-4.5); Lymphocytes % 13.1 % (10-50); Mean Corpuscular HGB Conc 33.2 g/dL (31.8-35.4); Mean Corpuscular Volume 90.1 fl (80-94); Mean Platelet Volume 13.8 fl (7.4-10.4); Monocytes # 1.9 K/mm3 (0.1-1.0); Monocytes % 12.2 % (1.7-9.3); Neutrophils # 11.4 K/mm3 (1.8-7.8); Neutrophils % 72.3 % (37.0-80.0); Platelet Count 73 K/mm3 (142-424); Red Blood Count 4.01 M/mm3 (4.60-6.20); Red Cell Distribution Width 16.4 % (11.5-17.5); White Blood Count 15.8 K/mm3 (4.8-10.8)
[2020-04-30 13:12] LABS: MANUAL DIFFERENTIAL MANUAL DIFFERENTIAL (MANUAL DIFF)
[2020-04-30 13:35] LABS: Eosinophils % 1 % (0-3); Lymphocytes % 28 % (10-50); Monocytes % 4 % (2-9); Neutrophils % 64 % (42-76); Total Cells Counted 100
[2020-04-30 13:36] LABS: Platelet Estimate Marked Decrease; RBC Morphology Normal
[2020-04-30 13:54] LABS: Hemoglobin A1C 8.6 % (4.0-6.0)
[2020-04-30 14:27] LABS: Erythrocyte Sedimentation Rate 21 mm/hr (0-20)
[2020-04-30 14:55] LABS: Alanine Aminotransferase 16 U/L (12-78); Albumin/Globulin Ratio 1.4 (1.1-1.8); Alkaline Phosphatase 122 U/L (38-126); Anion Gap 10.5 mEq/L (5-15); Aspartate Amino Transferase 26 U/L (17-59); Bilirubin,Total 0.4 mg/dl (0.2-1.3); Blood Urea Nitrogen 34 mg/dl (9-20); Calcium 9.3 mg/dl (8.4-10.2); Carbon Dioxide 25 mmol/L (22.0-30.0); Chloride 109 mmol/L (98-107); Estimated Glomerular Filt Rate 30 ml/min (>60); GFR (African American) 37 ML/MIN (>60); Globulin 2.9 g/dL (1.3-3.2); Glucose 102 mg/dl (74-100); Potassium 4.5 mmoL/L (3.5-5.1); Sodium 140 mmol/L (136-145); Total Protein,Serum 6.9 g/dl (6.3-8.2)
[2020-04-30 15:01] LABS: C-Reactive Protein 2.5 mg/L (0-4)
== END ==
PROVIDERS: Visit Provider Nurse Practitioner
DX: E11.621 Type 2 diabetes mellitus with foot ulcer (principal); L97.511 Non-pressure chronic ulcer of other part of right foot limited to breakdown of skin; Z51.89 Encounter for other specified aftercare; Z79.4 Long term (current) use of insulin
CPT/HCPCS: 36415; 80053; 83036; 85007; 85025; 85651; 86140; 87070; 87186; 87205

== ENCOUNTER → 2020-06-20 18:24 | Outpatient (CLI) | payer MEDICARE, SELFPAY | PROVIDERS: Visit Provider Nurse Practitioner | DX: Z51.89 Encounter for other specified aftercare (principal); E11.621 Type 2 diabetes mellitus with foot ulcer; L97.511 Non-pressure chronic ulcer of other part of right foot limited to breakdown of skin | CPT/HCPCS: 87070; 87077; 87186; 87205 ==

== ENCOUNTER → 2020-07-25 12:06 | Outpatient (CLI) | payer MEDICARE, SELFPAY ==
[2020-07-25 12:52] LABS: Basophils # 0.1 K/mm3 (0-0.2); Basophils % 1.1 % (0.1-2.0); Eosinophils # 0.1 K/mm3 (0.0-0.4); Eosinophils % 1.2 % (0.1-12.0); Hematocrit 36.7 % (42.0-52.0); Hemoglobin 11.8 g/dL (14.1-18.0); Lymphocytes % 19.9 % (10-50); Mean Corpuscular HGB Conc 32.2 g/dL (31.8-35.4); Mean Corpuscular Hemoglobin 29.1 pg (27.0-31.2); Mean Corpuscular Volume 90.5 fl (80-94); Mean Platelet Volume 12.2 fl (7.4-10.4); Monocytes # 1.2 K/mm3 (0.1-1.0); Monocytes % 12.4 % (1.7-9.3); Neutrophils # 6.5 K/mm3 (1.8-7.8); Neutrophils % 65.5 % (37.0-80.0); Platelet Count 97 K/mm3 (142-424); Red Blood Count 4.05 M/mm3 (4.60-6.20); Red Cell Distribution Width 17.4 % (11.5-17.5); White Blood Count 9.9 K/mm3 (4.8-10.8)
[2020-07-25 13:09] LABS: Chloride 106 mmol/L (98-107); Potassium 4.4 mmoL/L (3.5-5.1); Sodium 140 mmol/L (136-145)
[2020-07-25 13:12] LABS: Alanine Aminotransferase 14 U/L (12-78); Albumin Level 4.2 g/dl (3.5-5.0); Albumin/Globulin Ratio 1.1 (1.1-1.8); Alkaline Phosphatase 121 U/L (38-126); Anion Gap 14.4 mEq/L (5-15); Aspartate Amino Transferase 24 U/L (17-59); Bilirubin,Total 0.5 mg/dl (0.2-1.3); Blood Urea Nitrogen 35 mg/dl (9-20); Calcium 9.6 mg/dl (8.4-10.2); Carbon Dioxide 24 mmol/L (22.0-30.0); Estimated Glomerular Filt Rate 34 ml/min (>60); GFR (African American) 41 ML/MIN (>60); Globulin 3.7 g/dL (1.3-3.2); Glucose 136 mg/dl (74-100); Total Protein,Serum 7.9 g/dl (6.3-8.2)
[2020-07-25 13:17] LABS: C-Reactive Protein 4.4 mg/L (0-4)
[2020-07-25 14:12] LABS: Erythrocyte Sedimentation Rate 47 mm/hr (0-20)
== END ==
PROVIDERS: Visit Provider Nurse Practitioner
DX: E11.621 Type 2 diabetes mellitus with foot ulcer (principal); L97.511 Non-pressure chronic ulcer of other part of right foot limited to breakdown of skin; Z79.4 Long term (current) use of insulin
CPT/HCPCS: 36415; 80053; 85025; 85651; 86140

== ENCOUNTER → 2020-07-29 09:58 | Outpatient (CLI) | payer MEDICARE, SELFPAY ==
--- NOTE | 2020-07-29 10:02 | US_ITS ---
APPROVED REPORT Exam Type: Ankle to Brachial Index Alpine Patroller: Chery Adams RT(R) Indications Claudication: Bilaterally Non-healing Ulcer: Right Rest Pain: Bilaterally non healing ulcer right 2nd toe Risk Factors Hypertension CAD Hyperlipidemia Obesity Diabetes Pressures/Indices Right Indices Left Indices Brachial 163.00 mmHg Brachial 171.00 mmHg Low Thigh 174.00 mmHg 1.02 Low Thigh 148.00 mmHg 0.87 Calf 179.00 mmHg 1.05 Calf 186.00 mmHg 1.09 Ankle(PT) 176.00 mmHg 1.03 Ankle(PT) 157.00 mmHg 0.92 Ankle(DP) 155.00 mmHg 0.91 Ankle(DP) 192.00 mmHg 1.12 Digit 91.00 mmHg 0.53 Digit 156.00 mmHg 0.91 Findings RT SUMI=1.0 LT SUMI=1.1 RT TBI=0.5 LT TBI=0.9 Diminished pulses Normal waveforms Conclusion RT SUMI=1.0 LT SUMI=1.1 RT TBI=0.5 LT TBI=0.9 Diminished pulses Normal waveforms Normal SUMI Electronically signed by : Nicholas Thompson MD 07/30/2020 17:01:56
--- NOTE | 2020-07-29 10:40 | XR_ITS ---
PROCEDURE: XR FOOT WT BEARING RT 3V CLINICAL INDICATION: non healing ulcer Pain COMPARISON: CR XR FOOT WT BEARING LT 3V from 03/31/2019 CR XR FOOT WT BEARING RT 3V from 06/01/2019 CR XR FOOT WT BEARING RT 3V from 12/12/2019 CR XR FOOT WT BEARING RT 3V from 04/02/2020 FINDINGS: Hammertoe deformity involving the toes. No fracture or dislocation. No lytic or blastic change. There is a prominent calcaneal spur and there is a Achilles enthesophyte with lucency at its base as before. No bony destructive process is evident. No soft tissue gas or radiopaque foreign bodies apparent. Soft tissue swelling is noted at the ankle. Other findings:None. IMPRESSION: Chronic changes, no acute finding Dictated by: Nicholas Thompson MD 07/29/2020 13:28 Nicholas Thompson MD in [facility] 07/29/2020 13:28
== END ==
PROVIDERS: PCP Family Medicine; Visit Provider Podiatrist
DX: R09.89 Other specified symptoms and signs involving the circulatory and respiratory systems (principal); E11.621 Type 2 diabetes mellitus with foot ulcer; L97.511 Non-pressure chronic ulcer of other part of right foot limited to breakdown of skin; Z51.89 Encounter for other specified aftercare; Z79.4 Long term (current) use of insulin
CPT/HCPCS: 73630; 93923

== ENCOUNTER → 2020-07-30 15:57 | Outpatient (CLI) | payer MEDICARE, SELFPAY ==
--- NOTE | 2020-07-30 16:03 | CT_ITS ---
PROCEDURE: CT KNEE RT WO CON CLINICAL HISTORY: RT KNEE PAIN COMPARISON: No exams were available for comparison TECHNIQUE: Axial images obtained with sagittal and coronal reformats. All CT scans at the facility use one or more dose reduction, viz: automated exposure control, ma/kV adjustment per patient size (including targeted exams where dose is matched to indication, i.e. head), or iterative reconstruction technique. FINDINGS: There are moderate to severe osteoarthritic changes of the right knee greatest at the medial compartment and patellofemoral joint with decrease in the joint space osteophyte formation and osteosclerosis. Subchondral cystic changes are present at the distal femur and proximal tibia. There is chondrocalcinosis of both medial and lateral meniscus. No fracture or dislocation. No lytic or blastic change. There is a Jimenez's cyst which measures 5 cm cephalad caudad and 2.4 cm AP. There is a mild amount of subcutaneous edema about the knee. There is generalized vascular calcification. 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
== END ==
PROVIDERS: PCP Family Medicine; Visit Provider Family Medicine
DX: M25.561 Pain in right knee (principal)
CPT/HCPCS: 73700

== ENCOUNTER 2020-08-05 10:47 | Outpatient (CLI) | payer MEDICARE, SELFPAY ==
[2020-08-05 10:51] VITALS: BMI 39.0
[2020-08-05 11:11] LABS: Chloride 107 mmol/L (98-107); Potassium 4.2 mmoL/L (3.5-5.1); Sodium 136 mmol/L (136-145)
[2020-08-05 11:14] LABS: Blood Urea Nitrogen 38 mg/dl (9-20); Creatinine Clearance Estimated 59 mL/min (50-200); Estimated Glomerular Filt Rate 38 ml/min (>60); GFR (African American) 47 ML/MIN (>60)
[2020-08-05 11:15] LABS: Anion Gap 13.2 mEq/L (5-15); Calcium 8.8 mg/dl (8.4-10.2); Carbon Dioxide 20 mmol/L (22.0-30.0); Glucose 359 mg/dl (74-100)
[2020-08-05 11:45] VITALS: BP 157/84; PULSE 87; RESP 20; TEMP 36.7
[2020-08-05 12:50] VITALS: BP 146/67; PULSE 81; RESP 18; O2SAT 98
== END 2020-08-05 12:50 | disposition home or self-care (01) ==
LOC: INF 10:47
PROVIDERS: Visit Provider Nurse Practitioner
DX: E11.621 Type 2 diabetes mellitus with foot ulcer (principal); L97.919 Non-pressure chronic ulcer of unspecified part of right lower leg with unspecified severity
CPT/HCPCS: 80048; 96365; J1335

== ENCOUNTER 2020-08-06 12:10 | Outpatient (CLI) | payer MEDICARE, SELFPAY ==
[2020-08-06 12:28] VITALS: BP 140/75; PULSE 78; RESP 18; TEMP 36.3; O2SAT 99
[2020-08-06 13:10] VITALS: BP 132/76; PULSE 74; RESP 16; TEMP 36.4; O2SAT 98
== END 2020-08-06 13:10 | disposition home or self-care (01) ==
LOC: INF 12:10
PROVIDERS: Visit Provider Nurse Practitioner
DX: E11.621 Type 2 diabetes mellitus with foot ulcer (principal); L97.919 Non-pressure chronic ulcer of unspecified part of right lower leg with unspecified severity; B96.20 Unspecified Escherichia coli [E. coli] as the cause of diseases classified elsewhere; Z79.4 Long term (current) use of insulin
CPT/HCPCS: 96365; J1335

== ENCOUNTER → 2020-08-06 15:56 | Outpatient (CLI) | payer MEDICARE, SELFPAY | PROVIDERS: Visit Provider Nurse Practitioner | DX: Z51.89 Encounter for other specified aftercare (principal); E11.621 Type 2 diabetes mellitus with foot ulcer; L97.919 Non-pressure chronic ulcer of unspecified part of right lower leg with unspecified severity; B96.20 Unspecified Escherichia coli [E. coli] as the cause of diseases classified elsewhere; Z79.4 Long term (current) use of insulin | CPT/HCPCS: 87070; 87077; 87186; 87205; 96365; J1335 ==

== ENCOUNTER 2020-08-07 10:27 | Outpatient (CLI) | payer MEDICARE, SELFPAY ==
--- NOTE | 2020-08-07 10:28 | MR_ITS ---
PROCEDURE: MR FOOT RT WO CON CLINICAL INDICATION: non-healing ulcer right second toe COMPARISON: CR XR FOOT WT BEARING RT 3V from 07/29/2020 TECHNIQUE: Routine multiplanar multi echo sequences are performed without gadolinium enhancement. FINDINGS: Metatarsus varus. There is generalized subcutaneous edema of the foot and ankle the tibiofibular ligaments and the PT FL appears intact. The ATFL appears partially discontinuous posteriorly suggesting partial tear. The deltoid ligament appears intact. Hammertoe deformity involves all toes. There is soft tissue swelling with increased T2 signal involving the distal phalanx of the 2nd toe. This is somewhat difficult to visualize secondary to the hammertoe deformity. Osteomyelitis however is considered. No obvious abscess or sinus tracts. The tendinous structures have an unremarkable appearance. IMPRESSION: Diffuse increased T2 signal involves the distal phalanx of the 2nd toe suspicious for osteomyelitis with associated soft tissue swelling. Diffuse soft tissue swelling of the foot and ankle. Possible partial tear of the ATFL Dictated by: Nichloas Thompson MD 08/19/2020 09:32 Nicholas Thompson MD in [facility] 08/19/2020 09:32
[2020-08-07 12:16] VITALS: BP 142/77; PULSE 75; RESP 18; TEMP 36.3; O2SAT 98
[2020-08-07 12:46] VITALS: BP 139/79; PULSE 79; RESP 18; O2SAT 99
[2020-08-07 13:05] VITALS: BP 150/73; PULSE 73; RESP 18; O2SAT 98
== END 2020-08-07 13:05 | disposition home or self-care (01) ==
LOC: RAD 12:00 → INF 12:02
PROVIDERS: PCP Family Medicine; Visit Provider Podiatrist
DX: L97.511 Non-pressure chronic ulcer of other part of right foot limited to breakdown of skin (principal); B96.20 Unspecified Escherichia coli [E. coli] as the cause of diseases classified elsewhere
CPT/HCPCS: 73718; 96365; J1335

== ENCOUNTER 2020-08-08 09:22 | Outpatient (CLI) | payer MEDICARE, SELFPAY ==
[2020-08-08 09:43] VITALS: BP 154/75; PULSE 81; RESP 20; TEMP 36.3; O2SAT 98
[2020-08-08 10:13] VITALS: BP 148/72; PULSE 78; RESP 20; O2SAT 97
[2020-08-08 10:35] VITALS: BP 141/78; PULSE 76; RESP 20; O2SAT 97
== END 2020-08-08 10:40 | disposition home or self-care (01) ==
LOC: INF 09:22
PROVIDERS: Visit Provider Nurse Practitioner
DX: E11.621 Type 2 diabetes mellitus with foot ulcer (principal); L97.919 Non-pressure chronic ulcer of unspecified part of right lower leg with unspecified severity; B96.20 Unspecified Escherichia coli [E. coli] as the cause of diseases classified elsewhere; Z79.4 Long term (current) use of insulin
CPT/HCPCS: 96365; J1335

== ENCOUNTER → 2020-08-09 10:12 | Outpatient (CLI) | payer MEDICARE, SELFPAY ==
[2020-08-09 10:30] VITALS: BP 107/81; PULSE 89; RESP 18; TEMP 36.6; O2SAT 96
[2020-08-09 11:30] VITALS: BP 140/77; PULSE 87; RESP 18; TEMP 36.6; O2SAT 100
== END ==
PROVIDERS: PCP Family Medicine; Visit Provider Nurse Practitioner
DX: E11.621 Type 2 diabetes mellitus with foot ulcer (principal); L97.919 Non-pressure chronic ulcer of unspecified part of right lower leg with unspecified severity; B96.20 Unspecified Escherichia coli [E. coli] as the cause of diseases classified elsewhere; Z79.4 Long term (current) use of insulin
CPT/HCPCS: 96365; J1335

== ENCOUNTER → 2020-08-10 10:29 | Outpatient (CLI) | payer MEDICARE, SELFPAY ==
[2020-08-10 10:50] VITALS: BP 140/83; PULSE 80; RESP 18; TEMP 36.6; O2SAT 98
== END ==
PROVIDERS: Visit Provider Nurse Practitioner
DX: E11.621 Type 2 diabetes mellitus with foot ulcer (principal); L97.919 Non-pressure chronic ulcer of unspecified part of right lower leg with unspecified severity; B96.20 Unspecified Escherichia coli [E. coli] as the cause of diseases classified elsewhere; Z79.4 Long term (current) use of insulin
CPT/HCPCS: 96365; J1335

== ENCOUNTER → 2020-08-11 10:48 | Outpatient (CLI) | payer MEDICARE, SELFPAY ==
[2020-08-11 11:17] VITALS: BP 120/66; PULSE 75; RESP 18; TEMP 36.9; O2SAT 95
--- NOTE | 2020-08-11 11:51 | PC.NURSE ---
22gauge iv in r ac removed and 20 in l ac placed
== END ==
PROVIDERS: Visit Provider Nurse Practitioner
DX: E11.621 Type 2 diabetes mellitus with foot ulcer (principal); L97.919 Non-pressure chronic ulcer of unspecified part of right lower leg with unspecified severity; B96.20 Unspecified Escherichia coli [E. coli] as the cause of diseases classified elsewhere; Z79.4 Long term (current) use of insulin
CPT/HCPCS: 96365; J1335

== ENCOUNTER 2020-08-12 10:30 | Outpatient (CLI) | payer MEDICARE, SELFPAY ==
[2020-08-12 10:39] VITALS: BP 150/76; PULSE 88; RESP 18; TEMP 36.1; O2SAT 98
[2020-08-12 11:15] VITALS: BP 139/74; PULSE 82; RESP 16; TEMP 36.4; O2SAT 98
== END 2020-08-12 11:30 | disposition home or self-care (01) ==
LOC: INF 10:30
PROVIDERS: Visit Provider Nurse Practitioner
DX: E11.621 Type 2 diabetes mellitus with foot ulcer (principal); L97.919 Non-pressure chronic ulcer of unspecified part of right lower leg with unspecified severity; B96.20 Unspecified Escherichia coli [E. coli] as the cause of diseases classified elsewhere; Z79.4 Long term (current) use of insulin
CPT/HCPCS: 96365; J1335

== ENCOUNTER 2020-08-13 10:34 | Outpatient (CLI) | payer MEDICARE, SELFPAY ==
[2020-08-13 10:43] VITALS: BP 157/54; PULSE 62; RESP 18; TEMP 36.4; O2SAT 97
[2020-08-13 11:13] VITALS: BP 152/51; PULSE 61; RESP 18; O2SAT 97
[2020-08-13 11:50] VITALS: BP 135/66; PULSE 78; RESP 18; O2SAT 96
== END 2020-08-13 12:00 | disposition home or self-care (01) ==
LOC: INF 10:34
PROVIDERS: Visit Provider Nurse Practitioner
DX: E11.621 Type 2 diabetes mellitus with foot ulcer (principal); L97.919 Non-pressure chronic ulcer of unspecified part of right lower leg with unspecified severity; B96.20 Unspecified Escherichia coli [E. coli] as the cause of diseases classified elsewhere; Z79.4 Long term (current) use of insulin
CPT/HCPCS: 96365; J1335

== ENCOUNTER 2020-08-14 11:45 | Outpatient (CLI) | payer MEDICARE, SELFPAY ==
[2020-08-14 12:08] VITALS: BP 131/74; PULSE 84; RESP 18; TEMP 35.7; O2SAT 97
[2020-08-14 12:48] VITALS: BP 142/69; PULSE 85; RESP 18
== END 2020-08-14 13:15 | disposition home or self-care (01) ==
LOC: INF 11:52
PROVIDERS: Visit Provider Nurse Practitioner
DX: E11.621 Type 2 diabetes mellitus with foot ulcer (principal); L97.919 Non-pressure chronic ulcer of unspecified part of right lower leg with unspecified severity; B96.20 Unspecified Escherichia coli [E. coli] as the cause of diseases classified elsewhere; Z79.4 Long term (current) use of insulin
CPT/HCPCS: 96365; J1335

== ENCOUNTER → 2020-08-21 13:25 | Outpatient (CLI) | payer MEDICARE, SELFPAY ==
--- NOTE | 2020-08-21 14:17 | ECG_ITS ---
APPROVED REPORT Exam: Resting ECG HR:88 bpm ECG Measurements Heart Rate 88 AXES WA 200 P 41 QRSd 72 QRS 49 QT 362 T 38 QTc 438 Conclusion Sinus rhythm with occasional premature ventricular complexes Low voltage QRS Late r wave progression unchanged Abnormal ECG Electronically signed by : Pedro Pack, 08/21/2020 21:03:59
[2020-08-21 14:19] LABS: Basophils # 0.2 K/mm3 (0-0.2); Basophils % 1.6 % (0.1-2.0); Eosinophils # 0.1 K/mm3 (0.0-0.4); Hematocrit 37.6 % (42.0-52.0); Hemoglobin 11.9 g/dL (14.1-18.0); Lymphocytes # 1.5 K/mm3 (0.7-4.5); Lymphocytes % 15.7 % (10-50); Mean Corpuscular HGB Conc 31.6 g/dL (31.8-35.4); Mean Corpuscular Hemoglobin 29.2 pg (27.0-31.2); Mean Corpuscular Volume 92.5 fl (80-94); Mean Platelet Volume 12.8 fl (7.4-10.4); Monocytes # 1.3 K/mm3 (0.1-1.0); Monocytes % 13.8 % (1.7-9.3); Neutrophils # 6.3 K/mm3 (1.8-7.8); Neutrophils % 67.7 % (37.0-80.0); Platelet Count 101 K/mm3 (142-424); Red Blood Count 4.06 M/mm3 (4.60-6.20); Red Cell Distribution Width 17.5 % (11.5-17.5); White Blood Count 9.2 K/mm3 (4.8-10.8)
--- NOTE | 2020-08-21 14:22 | XR_ITS ---
PROCEDURE: XR CHEST 2V CLINICAL HISTORY: HTN COMPARISON: CR CXR2V XR chest 2V from 10/25/2018 CR CXR2V XR chest 2V from 11/09/[address] chest wo con from 11/16/2018 CR XR CHEST PORTABLE PICC PLAC from 07/03/2019 FINDINGS: Borderline cardiomegaly without failure. Scarring is present in the right mid and lower lung. There is some minimal blunting of the right CP angle and minimal pleural thickening in the right lower hemithorax laterally. The left lung is clear. There is ankylosis of the thoracic spine IMPRESSION: Chronic changes with scarring on the right and pleural thickening on the right which appears chronic in nature. No definite acute finding. Dictated by: Nicholas Thompson MD 08/21/2020 15:55 Nicholas Thompson MD in [facility] 08/21/2020 15:55
[2020-08-21 15:31] LABS: Alanine Aminotransferase 15 U/L (12-78); Albumin/Globulin Ratio 1.1 (1.1-1.8); Alkaline Phosphatase 152 U/L (38-126); Anion Gap 16.2 mEq/L (5-15); Aspartate Amino Transferase 21 U/L (17-59); Bilirubin,Total 0.5 mg/dl (0.2-1.3); Blood Urea Nitrogen 40 mg/dl (9-20); Calcium 9.2 mg/dl (8.4-10.2); Carbon Dioxide 20 mmol/L (22.0-30.0); Chloride 106 mmol/L (98-107); Estimated Glomerular Filt Rate 29 ml/min (>60); GFR (African American) 35 ML/MIN (>60); Globulin 3.5 g/dL (1.3-3.2); Glucose 349 mg/dl (74-100); Potassium 4.2 mmoL/L (3.5-5.1); Sodium 138 mmol/L (136-145); Total Protein,Serum 7.5 g/dl (6.3-8.2)
[2020-08-21 15:37] LABS: C-Reactive Protein 5.5 mg/L (0-4)
[2020-08-21 15:41] LABS: Coronavirus 19 IgG Antibody Negative (Negative); Coronavirus 19 IgM Antibody Negative (Negative)
[2020-08-21 15:46] LABS: Erythrocyte Sedimentation Rate 37 mm/hr (0-20)
== END ==
PROVIDERS: Visit Provider Podiatrist
DX: Z01.812 Encounter for preprocedural laboratory examination (principal); Z11.52 Encounter for screening for COVID-19; M86.9 Osteomyelitis, unspecified; A49.02 Methicillin resistant Staphylococcus aureus infection, unspecified site; Z79.899 Other long term (current) drug therapy
CPT/HCPCS: 36415; 71046; 80053; 83036; 85025; 85651; 86140; 86328; 93005

== ENCOUNTER 2020-08-22 10:15 | Day surgery (SDC) | payer MEDICARE, SELFPAY ==
[2020-08-22] VITALS (9 sets, daily range): BP systolic 120–163; BP diastolic 62–114; PULSE 74–85; RESP 18–20; TEMP 36.7; O2SAT 96–98; BMI 38.9
--- NOTE | 2020-08-22 07:05 | IR_ITS ---
APPROVED REPORT Patient Location: Outpatient PROCEDURES Left femoral arterial access Catheter placed in right common femoral artery Right common femoral artery antegrade angiogram Catheter placed in the right superficial femoral artery Right superficial femoral artery antegrade angiogram with unilateral runoff to the right foot INDICATION Preoperative evaluation for amputation of a portion of the right lower extremity, Peripheral artery disease Informed consent was obtained prior to the procedure. COMPLICATIONS none Estimated Blood Loss: less than 10 mls TECHNIQUE 1% lidocaine used to anesthetize the left femoral groin. The left femoral artery was accessed via the Seldinger technique. Using fluoroscopic guidance the JR4 catheter was advanced from the aorta into the right common iliac artery and then advanced into the right superficial femoral artery. A stepwise approach was then performed from the right common femoral artery down into the right superficial femoral artery and then a unilateral runoff to the right foot. At the end the procedure the apparatus was removed the patient was transferred to the postop holding area stable addition for sheath removal ANGIOGRAPHIC RESULTS By physical exam patient had a +2 right femoral artery pulse. Given the creatinine of 2.2 iliofemoral angiography was not performed in order to reduce the risk of contrast nephropathy The right profunda femoris artery is normal The right superficial femoral artery is widely patent with nonflow limiting mild atheromatous plaque The right popliteal artery is widely patent with mild nonflow limiting atheromatous plaque The PT trunk has sequential 40% stenoses The anterior and posterior tibialis artery are proximally occluded The peroneal artery is a large-caliber vessel and widely patent and supplies the distal aspect of the cath. At the end collateralizes and reconstitutes the anterior and posterior tibialis artery which both supply the right foot IMPRESSION Peripheral artery disease as described above PLAN 1. Proceed with amputation. Patient should be able to heal a transmetatarsal amputation as well as a BKA amputation due to the excellent inline flow from the popliteal artery and large caliber peroneal artery 2. Recommend Xarelto 2.5 twice daily plus aspirin 81 mg daily 3. LDL less than 55 Electronically signed by : Gabe Winter, 08/22/2020 13:11:07
--- NOTE | 2020-08-22 10:22 | CA_ITS ---
APPROVED REPORT EXAM: Comprehensive 2D, Doppler, and color-flow Echocardiogram Maintainer [employer]: CHRIS AMAYA Ht: 6 ft 0 in Wt: 287lbs BSA: 2.48 BP: 143/68 mmHg Indications: CAD-STENT, HTN, EDEMA Echo Enhancing Agent Comments: Extremely Limited study due to chest circumferenceand lung interference, multiple attempts and techs were implemented. 2D Dimensions IVSd 1.00 cm M: 0.6-1.2 LVEF (Siddiqui's) 53.00 % M: 52 - 72 PWd 0.80 cm M: 0.6 - 1.2 LVDd 5.80 cm M: 4.2 - 5.9 LVDs 3.66 cm M: 2.5 - 4.0 Aortic Root 4.00 cm M: 3.1 - 3.7 Left Atrium 3.10 cm M: 3.0 - 4.0 RVID Base (AP4) 3.00 cm (M/F) 2.5-4.1 LVOT 2.15 cm (M/F) 1.5-2.5 M-Mode Dimensions Ao Diam 3.96 cm (2.0-3.7) AV Cusp 1.10 cm (1.5-2.6) LV Diastology E Decel Time 240.00 (160-240 msec) E/A Ratio 0.68 MED E' 14.10 (< 7 cm/sec) E'/MED E' Ratio 3.06 (>14) LAT E' 7.60 (<10 cm/sec) E/LAT E' Ratio 5.67 (>14) Aortic Valve AO Peak GR. 8.60 mmHg Mitral Valve MV A Velocity 63.00 (40-130 cm/s) E/A Ratio 0.68 MV Decel. Time 240.00 (160-240 ms) Left Ventricle Technically difficult study because of the patient factors and poor acoustic windows. Left atrium is mildly enlarged, left ventricle is normal size, mild concentric left ventricular hypertrophy, visually estimated ejection fraction 55% with no regional wall motion abnormality, grade 1 diastolic dysfunction seen without tissue Doppler evidence of raise left atrial pressure. The Ejection Fraction is 53% Right Ventricle Right atrium and right ventricle are normal size and contractility. Aortic Valve Aortic valve is minimally thickened and fibrosed, there is no aortic stenosis or aortic insufficiency. Mitral Valve Mitral valve is grossly normal, there is mild mitral regurgitation. Tricuspid Valve Tricuspid valve is grossly normal, there is mild tricuspid regurgitation, tricuspid regurgitation jet velocity is inadequate for calculation of the right ventricular systolic pressure. Pulmonic Valve Pulmonic valve is poorly visualized. Great Vessels Aortic root is normal size. Pericardium No significant pericardial effusion noted. Conclusion 1. Mildly enlarged left atrium, normal left ventricular size, mild concentric left ventricular hypertrophy, visually estimated ejection fraction 55% with no regional wall motion abnormality, grade 1 diastolic dysfunction seen without tissue Doppler evidence of raise left atrial pressure. 2. Mild mitral and tricuspid regurgitation. 3. No significant pericardial effusion noted. Electronically signed by : Austin Mcpherson, 08/22/2020 16:12:07
== END 2020-08-22 16:00 | disposition home or self-care (01) ==
LOC: CATHLAB 10:18
PROVIDERS: PCP Family Medicine; Visit Provider Internal Medicine
DX: E11.621 Type 2 diabetes mellitus with foot ulcer (principal); L97.511 Non-pressure chronic ulcer of other part of right foot limited to breakdown of skin; I70.211 Atherosclerosis of native arteries of extremities with intermittent claudication, right leg; I25.10 Atherosclerotic heart disease of native coronary artery without angina pectoris; E11.51 Type 2 diabetes mellitus with diabetic peripheral angiopathy without gangrene; I70.25 Atherosclerosis of native arteries of other extremities with ulceration; E78.5 Hyperlipidemia, unspecified; I10 Essential (primary) hypertension; Z95.5 Presence of coronary angioplasty implant and graft; R60.0 Localized edema; Z79.82 Long term (current) use of aspirin; Z79.899 Other long term (current) drug therapy; Z79.4 Long term (current) use of insulin; E03.9 Hypothyroidism, unspecified; I77.1 Stricture of artery
CPT/HCPCS: 36247; 75710; 93306; 99152; 99153; C1725; C1769; C1894; J1644; Q9966

== ENCOUNTER 2020-08-23 06:59 | Day surgery (SDC) | payer MEDICARE, SELFPAY ==
[2020-08-21 09:02] VITALS: BMI 39.0
[2020-08-23 07:34] VITALS: BP 132/77; PULSE 85; RESP 20; TEMP 36.4; O2SAT 98
--- NOTE | 2020-08-23 07:45 | HMH.ANESCL ---
[facility] Anesthesia Checklist - Patient Identification Patient Identification: Arm Band - Structural Data Admitted From: Home Planned Operative Procedure/s: Right 2nd toe partial amputation Consent for Planned Operative Procedure(s) Verified: Yes Verified Documents: Surgical Consent, History and Physical - NPO Status Verified Time NPO: 00:00 - Additional verifications Anesthesia Reactions: No - Airway Assessment C-Spine Mobility Assessed: Yes (mp2) TMJ Mobility Assessed: Yes Dentition: Good Dentition - Neurological Assessment Level of Consciousness: Awake, Alert - Anesthesia Plan Anesthesia Risk discussed: Yes Anesthesia Plan: Verified ASA Class: III Anesthesia Type: General [facility] History I have reviewed the patient's past medical history: Yes Medical History: Reports:: Cancer (colon), Diabetes Mellitus Type 2, Hyperlipidemia, Hypertension, Urinary Tract Infection Denies:: Diabetes Mellitus Type 1, Internal Pacemaker, MRSA, Seizures *Have you ever received a pneumonia vaccine?: Yes *Have you received a flu vaccine this season?: Yes Other Medical History: Reports: Arthritis, Hypothyroidism, Thyroid Disease, Other Anesthesia experience/problems:: nac Laterality Cases: Bilateral: Arthroscopy Knee Other Surgeries: Yes: Cancer Surgery, Cardiac Catheterization, Cardiac Surgery, Colonoscopy, Coronary Stent, Other. No: Pacemaker Amputation: No Fractures: No - *Social History Last grade of school completed: 11th or 12th Smoking Status: Never smoker Alcohol Intake: never Alcohol Intake Frequency:: other Substance Use Type: denies use *Occupational Status:: retired Housing: house Household Members: spouse *Travel in the last 8 weeks: None Family Hx:: Cancer, Heart Attack
[2020-08-23 07:51] LABS: POC Glucose,Bedside 118 (70-110)
--- NOTE | 2020-08-23 08:34 | SUR.PREOP ---
0825-pt used urinal 12ml yellow urine
--- NOTE | 2020-08-23 09:20 | HMH.OPNOTE ---
Date of procedure: 08/23/20 Pre-op Diagnosis:: 1. 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 Right 2nd toe DM infection Post-op Diagnosis:: Same Procedure performed:: 1. Right 2nd (partial) toe amputation Surgeon:: Iris Barr DPM SALES FACILITATOR:: Pedro Romero Anesthesia: MAC, local (20cc 0.5% marcaine plain) Estimated blood loss (mL): 5 Clinical Note:: Mr. Torres is an 85-year-old diabetic male who has had a recurrent right distal second toe callus which breaks down to an ulceration. The wound has been healed and then reulcerate. Recent MRI shows osteomyelitis of the distal phalanx. Patient saw cardiology and had echo and runoff procedure 08/22/2020. Cardiac and medical clearance granted. We discussed conservative versus surgical treatment options. Conservative treatment options include local wound care, oral and IV antibiotics, change in shoe wear, taping/padding, and off-loading. Discussed that patient would benefit from a wider and deeper shoe wear to accommodate the deformity. We discussed surgical intervention for amputation of the right 2nd toe. We discussed recurrence of callus and ulcer due to the elongated second toe and potential underlying bone infection. Patient understands that there is a chance that the toes can migrate to fill the gap or the foot may change shape after surgery. Patient also understands that they could have wound healing complications including delayed healing and infection. We discussed that if the wound does not heal, it is possible that they may need a more proximal amputation and could result in further loss of digits, loss of partial foot or loss of leg. We discussed the risks and benefits in great detail. Other surgical risks include: prolonged pain and swelling, further infection requiring oral or IV antibiotics, delay in healing of soft tissue or bone, nerve or blood vessel damage, CRPS/RSD, DVT, anesthesia complications, and even . All questions answered. Patient verbalized understanding. Consent obtained. Operative findings:: Right distal second toe callus with underlying ulceration above the level of the bone. Distal phalanx cortical erosion soft and the bone was crumbly. No obvious malodor. Head of the middle phalanx intact with no cortical erosions. No evidence of infection tracking up the tendons. No purulence noted. Infection appeared to be isolated to the distal phalanx. Operative note:: On this date and time patient was deemed an appropriate surgical candidate. With informed consent signed, the patient was taken to the operating theater. The patient was positioned supine. MAC anesthesia was induced. No tourniquet used. Pre-op right second toe block given with 10 cc 0.5% marcaine plain. Right 2nd digit (partial) amputation: The right lower extremity was prepped and drapped in normal sterile fashion. A racquetball incision was mapped out around the DIPJ. Utilizing a 15 blade dissection was carried down sharply to the level of the bone around the distal phalanx which was disarticulated from the medial phalanx. The distal phalanx bone was soft and crumbly and had a no malodor to it. Portion of it was cut and sent for bone culture and the other part was sent for bone biopsy for pathology. Attention was then directed to the middle phalanx. The head was hard and intact, with no obvious discoloration or cortical erosions noted. Next bacitracin irrigation was used to flush the wound. The wound was reexplored and no further signs of infection noted. Bleeding controlled. No vessels ligated with electrocautery or tied as there was minimal to no blood loss. 3-0 Vicryl used to reapproximate subcutaneous tissue at the apex. 3-0 Prolene was used to close skin in an interrupted simple suture fashion. 10cc 0.5% marcaine plain given at end of case. The wounds were cleansed. Xeroform, dry sterile dressing was then applied to the foot. The patient was awoken from anesthesia and transferred to recovery with vital signs stable and neuro
[2020-08-23 09:21] VITALS: BP 135/70; PULSE 71; RESP 18; TEMP 36.4; O2SAT 90
--- NOTE | 2020-08-23 09:30 | XR_ITS ---
PROCEDURE: XR FOOT RT MIN 3V CLINICAL INDICATION: post op amp Follow-up amputation COMPARISON: CR XR FOOT WT BEARING RT 3V from 06/01/2019 CR XR FOOT WT BEARING RT 3V from 12/12/2019 CR XR FOOT WT BEARING RT 3V from 04/02/2020 CR XR FOOT WT BEARING RT 3V from 07/29/2020 FINDINGS: Status post amputation at the distal phalanx of the 2nd toe with bandage artifact at that area. Prominent calcaneal spur and Achilles enthesophyte with hammertoe deformity noted the toes. Other findings:None. IMPRESSION: Status post amputation distal phalanx 2nd toe Dictated by: Nicholas Thompson MD 08/23/2020 13:37 Nicholas Thompson MD in [place] 08/23/2020 13:37
[2020-08-23 09:36] VITALS: BP 137/78; PULSE 73; RESP 18; O2SAT 94
[2020-08-23 09:51] VITALS: BP 149/90; PULSE 76; RESP 18; O2SAT 99
[2020-08-23 10:15] VITALS: BP 162/93; PULSE 74; RESP 18; O2SAT 98
== END 2020-08-23 10:15 | disposition home or self-care (01) ==
LOC: OR 07:00
PROVIDERS: PCP Family Medicine; Visit Provider Podiatrist
PROC: (CPT 28124; principal; 2020-08-23 08:45)
DX: E11.621 Type 2 diabetes mellitus with foot ulcer (principal); Z79.4 Long term (current) use of insulin; L97.511 Non-pressure chronic ulcer of other part of right foot limited to breakdown of skin; E11.52 Type 2 diabetes mellitus with diabetic peripheral angiopathy with gangrene; I96 Gangrene, not elsewhere classified; Z79.899 Other long term (current) drug therapy; Z79.82 Long term (current) use of aspirin
CPT/HCPCS: 28124; 73630; 82962; 87070; 87077; 87186; 87205; 88305; 88311; 96374; J1335; J3370

== ENCOUNTER → 2020-09-13 13:31 | Outpatient (CLI) | payer MEDICARE, SELFPAY ==
--- NOTE | 2020-09-13 13:39 | MR_ITS ---
PROCEDURE: MR HEAD/BRAIN WO CON CLINICAL INDICATION: PT has hx of recent altered mental status. Altered mental status, altered level of consciousness, confusion, disorientation COMPARISON: No exams were available for comparison TECHNIQUE: Routine multiplanar multi echo sequences are performed without gadolinium enhancement. FINDINGS: No midline shift, mass effect, intracranial hemorrhage, or hydrocephalus is evident. There is diffuse atrophy with moderate periventricular and subcortical T2 white matter hyperintensities consistent with ischemic gliotic change from microvascular disease. The cerebellopontine angles have an unremarkable appearance. There are bilateral mastoid effusions. Retention cysts are present in the maxillary sinuses and there is opacification of the ethmoid sinuses anteriorly and complete opacification of the frontal sinuses with decreased T2 signal centrally within the left frontal sinus consistent with chronic sinusitis. There is a 7 mm rounded area of increased T2 signal involving the posterior aspect of the pituitary. No pituitary enlargement is evident. No compression upon the optic chiasm. The corpus callosum and craniocervical junction have an unremarkable appearance. There is some mild ectasia of the tip of the basilar artery with a questionable small aneurysm at the origin of the right posterior cerebral artery versus overlapping vessel, favor the latter. This area measures approximately 2-3 mm.. IMPRESSION: 1. No acute intracranial findings. 2. Atrophy with chronic ischemic gliotic changes. 3. Small 7 mm pituitary nodule. This may be further evaluated with MRI without and with gadolinium enhancement with dynamic imaging/pituitary protocol if clinically desired. This is without mass effect and could also be followed in 6 months to confirm stability. 4. Probable vascular overlap at the right aspect of the basilar tip versus a small posterior communicating artery aneurysm. CTA or MRA may further evaluate if clinically desired. 5. Sinusitis Dictated by: Nicholas Thompson MD 09/15/2020 10:54 Nicholas Thompson MD in [place] 09/15/2020 10:54
== END ==
PROVIDERS: PCP Family Medicine; Visit Provider Family Medicine
DX: R41.82 Altered mental status, unspecified (principal)
CPT/HCPCS: 70551

== ENCOUNTER → 2020-09-30 15:22 | Outpatient (CLI) | payer MEDICARE, SELFPAY ==
--- NOTE | 2020-09-30 15:28 | CA_ITS ---
APPROVED REPORT Right Lower Extremity Venous Study for DVT. Electric Fan Assembler: Marion Nowak RVT Indications Lower Extremity Pain: Right Lower Extremity Edema: Right RT CALF PAIN,S/P 2ND TOE AMPUTATION RT FOOT Risk Factors Obesity Post OP Vein Imaging CFV (R): compressive, spontaneous, phasic, augmentation FEM (R): compressive, spontaneous, phasic, augmentation POP (R): compressive, spontaneous, phasic, augmentation PTV (R): Compressible GSV (R): Compressible Peroneals (R):Compressible GAS (R): Compressible Findings Study suggests no evidence of DVT of the right lower extremity. Study suggests no evidence of SVT of the right lower extremity. 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 4.3 X 1.6 cystic lesion seen mid medial calf. Conclusion Study suggests no evidence of DVT of the right lower extremity. Study suggests no evidence of SVT of the right lower extremity. 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 4.3 X 1.6 cystic lesion seen mid medial calf. This is of unknown etiology. Electronically signed by : Nicholas Thompson MD 09/30/2020 17:17:10
== END ==
PROVIDERS: PCP Family Medicine; Visit Provider Family Medicine
DX: M79.661 Pain in right lower leg (principal); M79.89 Other specified soft tissue disorders
CPT/HCPCS: 93971

== ENCOUNTER 2020-10-02 00:35 | Emergency (ER) | payer MEDICARE, SELFPAY ==
[2020-10-02] VITALS (8 sets, daily range): BP systolic 118–159; BP diastolic 75–90; PULSE 82–95; RESP 12–18; TEMP 36.7; O2SAT 92–98; BMI 29.8
--- NOTE | 2020-10-02 00:53 | XR_ITS ---
PROCEDURE: XR CHEST PORTABLE CLINICAL HISTORY: fall Posttraumatic pain COMPARISON: CR CXR2V XR chest 2V from 11/09/[address] chest wo con from 11/16/2018 CR XR CHEST PORTABLE PICC PLAC from 07/03/2019 CR XR CHEST 2V from 08/21/2020 FINDINGS: There is cardiomegaly with prominence of the mediastinum. There are low lung volumes which may contribute to this finding. There are atelectatic changes in the right lower lobe. Mild pleural thickening noted in the right lower hemithorax laterally. Minimal atelectatic change also present in left lung base laterally. No acute bony abnormalities. IMPRESSION: Low lung volumes with prominence of the cardiomediastinal silhouette with bibasilar atelectasis Dictated by: Nicholas Thompson MD 10/02/2020 05:31 Nicholas Thompson MD in [facility] 10/02/2020 05:31
--- NOTE | 2020-10-02 00:53 | XR_ITS ---
PROCEDURE: XR PELVIS 1-2V CLINICAL INDICATION: fall Injury with pain COMPARISON: CT ABDPELWO CT abdomen pelvis wo con from 09/30/2017 TECHNIQUE: XR Pelvis AP View FINDINGS: No fracture or dislocation is evident. Mild osteoarthritic change of both hips. Castillo catheter is present. No lytic or blastic change. IMPRESSION: No acute findings. Dictated by: Nicholas Thompson MD 10/02/2020 05:29 Nicholas Thompson MD in [facility] 10/02/2020 05:29
--- NOTE | 2020-10-02 00:53 | XR_ITS ---
PROCEDURE: XR WRIST LT MIN 3V CLINICAL INDICATION: fall Posttraumatic pain and tenderness COMPARISON: No exams were available for comparison FINDINGS: No fracture or dislocation. No lytic or blastic change. There is normal mineralization. Mild osteoarthritic changes are present at the radiocarpal joint Other findings:None. IMPRESSION: No acute findings. Dictated by: Nicholas Thompson MD 10/02/2020 05:27 Nicholas Thompson MD in [facility] 10/02/2020 05:27
--- NOTE | 2020-10-02 00:53 | CT_ITS ---
PROCEDURE: CT HEAD/BRAIN WO CON CLINICAL INDICATION: fall Head injury with headache/pain, contusion, abrasion or hematoma COMPARISON: No exams were available for comparison TECHNIQUE: Axial images obtained. All CT scans at the facility use one or more dose reduction, viz: automated exposure control, ma/kV adjustment per patient size (including targeted exams where dose is matched to indication, i.e. head), or iterative reconstruction technique. FINDINGS: No midline shift, mass effect, intracranial hemorrhage, hydrocephalus, or extra-axial fluid collection is evident. There is generalized atrophy with hypoattenuation of the periventricular white matter consistent with microangiopathic changes. Encephalomalacia changes are present in the left occipital lobe. The calvarium has an unremarkable appearance. No mastoid effusion. There is complete opacification the frontal sinuses and near complete opacification of the ethmoids anteriorly. Bilateral mucous retention cysts noted of the maxillary sinuses. IMPRESSION: 1. No acute intracranial findings. 2. Sinusitis Dictated by: Nicholas Thompson MD 10/02/2020 05:34 Nicholas Thompson MD in [facility] 10/02/2020 05:34
--- NOTE | 2020-10-02 00:53 | CT_ITS ---
PROCEDURE: CT CERVICAL SPINE WO CON CLINICAL INDICATION: fall Neck injury with pain, contusion/abrasion or hematoma, cervical sprain/strain the COMPARISON: No exams were available for comparison TECHNIQUE: Axial images obtained with sagittal and coronal reformats. All CT scans at the facility use one or more dose reduction, viz: automated exposure control, ma/kV adjustment per patient size (including targeted exams where dose is matched to indication, i.e. head), or iterative reconstruction technique. Axial spiral CT scanning performed of the cervical spine beginning at the base of the skull and continuing to the upper T-spine. 3-D multiplanar reconstruction with 3-D manipulation of volumetric data set in image rendering was completed by the radiologist and/or technologist with the supervision of the radiologist on independent workstation. FINDINGS: No acute fracture or dislocation. There is multilevel cervical spondylosis. C2-C3: Degenerative disc disease. C3-C4: Degenerative disc disease with 3 mm anterolisthesis and right foraminal narrowing. C4-C5: Degenerate disc disease with facet hypertrophic change on the right and mild right foraminal narrowing. C5-C6: Degenerative disc disease. Prominent anterior osteophytes. C6-C7: Degenerate disc disease with left-sided foraminal narrowing. C7-T1: Degenerative disc disease. Anterior osteophytes are present at C4-C5 C6 and C7. The lung apices are clear. Retention cysts are present in the maxillary sinuses. IMPRESSION: 1. Cervical spondylosis as detailed above. 2. No acute fracture. Dictated by: Nicholas Thompson MD 10/02/2020 05:38 Nicholas Thompson MD in [facility] 10/02/2020 05:38
[2020-10-02 01:05] LABS: Basophils # 0.2 K/mm3 (0-0.2); Basophils % 1.2 % (0.1-2.0); Eosinophils # 0.1 K/mm3 (0.0-0.4); Eosinophils % 0.6 % (0.1-12.0); Hemoglobin 10.4 g/dL (14.1-18.0); Lymphocytes # 1.4 K/mm3 (0.7-4.5); Lymphocytes % 7.7 % (10-50); Mean Corpuscular HGB Conc 32.3 g/dL (31.8-35.4); Mean Corpuscular Hemoglobin 28.3 pg (27.0-31.2); Mean Corpuscular Volume 87.6 fl (80-94); Mean Platelet Volume 12.9 fl (7.4-10.4); Monocytes # 3.8 K/mm3 (0.1-1.0); Monocytes % 20.5 % (1.7-9.3); Neutrophils # 12.9 K/mm3 (1.8-7.8); Neutrophils % 70.1 % (37.0-80.0); Platelet Count 95 K/mm3 (142-424); Red Blood Count 3.66 M/mm3 (4.60-6.20); Red Cell Distribution Width 17.5 % (11.5-17.5); White Blood Count 18.3 K/mm3 (4.8-10.8)
[2020-10-02 01:08] LABS: Microscopic, Urine URINE MICROSCOPIC (MICROSCOPIC)
[2020-10-02 01:08] LABS: MANUAL DIFFERENTIAL MANUAL DIFFERENTIAL (MANUAL DIFF)
[2020-10-02 01:10] LABS: Appearance,Urine CLEAR (Clear); Bilirubin,Urine Negative (Negative); Blood, Urine 1+ (Negative); Color,Urine YELLOW (Yellow); Glucose,Urine (UA) Negative (Negative); Ketones,Urine Negative (Negative); Leukocyte Esterase,Urine TRACE (Negative); Nitrate,Urine Negative (Negative); PH,Urine 5.5 (5.0-8.5); Protein,Urine 1+ (Negative); Specific Gravity, Urine 1.025 (1.005-1.030); Urobilinogen,Urine 0.2 EU/dl (0.2)
--- NOTE | 2020-10-02 01:16 | HMH.EDFALL ---
ED Disposition Clinical Impression: SIRS (systemic inflammatory response syndrome), Thrombocytopenia, Renal insufficiency Fall Qualifiers: Encounter type: initial encounter Qualified Code(s): W19.XXXA - Unspecified fall, initial encounter Anemia Qualifiers: Anemia type: unspecified type Qualified Code(s): D64.9 - Anemia, unspecified Diabetes mellitus Qualifiers: Diabetes mellitus type: type 2 Diabetes mellitus fci insulin use: unspecified tank terminal gauger insulin use status Diabetes mellitus complication status: with other specified complication Qualified Code(s): E11.69 - Type 2 diabetes mellitus with other specified complication Disposition: Home, Self-Care Condition on Discharge: Good Instructions: How to Prevent Falls Additional Instructions: see pcp for follow up Referrals: Pedro Tenorio MD [Primary Care Provider] - - Critical Care Critical Care Time: No Attestation: On 10/02/20, the high probability of a clinically significant, sudden or life threatening deterioration of the following system(s) required my full and direct attention, intervention and personal management. The time I documented below is in addition to time spent performing reported procedures but includes the following listed in this critical care notation. Medical Decision Making - Medical Records Medical records reviewed: Yes: I reviewed the patient's medical records. - Tanner Inquiry Pt receiving controlled substance: No Vital Signs: 10/02/20 00:39 Temperature 98.1 F Temperature Source Oral Pulse Rate [Right] 95 H Respiratory Rate 12 Blood Pressure [Right Arm] 129/79 Blood Pressure Mean [Right Arm] 95 Blood Pressure Source [Right Arm] Automatic Cuff Blood Pressure Position [Right Arm] Supine 02 Sat by Pulse Oximetry 95 Oxygen Delivery Method Room Air - Lab Data Lab results reviewed: Yes: I reviewed the patient's lab results. Lab Results 10/02/20 00:30: WBC 18.3 H, RBC 3.66 L, Hgb 10.4 L, Hct 32.0 L, MCV 87.6, MCH 28.3, MCHC 32.3, RDW 17.5, Plt Count 95 L, MPV 12.9 H, Neut % (Auto) 70.1, Lymph % (Auto) 7.7 L, Tift % (Auto) 20.5 H, Eos % (Auto) 0.6, Baso % (Auto) 1.2, Neut # (Auto) 12.9 H, Lymph # (Auto) 1.4, Tift # (Auto) 3.8 H, Eos # (Auto) 0.1, Baso # (Auto) 0.2, Total Counted 100, Neutrophils % (Manual) 73, Lymphocytes % (Manual) 18, Monocytes % (Manual) 8, Basophils % (Manual) 1.0, Platelet Estimate Normal, RBC Morphology Not Reportable, Stomatocytes 1+, ESR 127 H 10/02/20 00:30: Sodium 136, Potassium 3.8, Chloride 105, Carbon Dioxide 22, Anion Gap 12.8, BUN 47 H, Creatinine 2.00 H, Estimated Creat Clear 38, Estimated GFR 32 L, Est GFR ( Amer) 39 L, Glucose 253 H, Calcium 9.3, Total Bilirubin 0.5, AST 18, ALT 11 L, Alkaline Phosphatase 117, Total Creatine Kinase 41 L, C-Reactive Protein 71.1 H, Total Protein 7.4, Albumin 3.8, Globulin 3.6 H, Albumin/Globulin Ratio 1.1 10/02/20 00:30: Procalcitonin 0.266 10/02/20 01:00: Urine Color Yellow, Urine Appearance Clear, Urine pH 5.5, Ur Specific [place] 1.025, Urine Protein 1+, Urine Glucose (UA) Negative, Urine Ketones Negative, Urine Blood 1+, Urine Nitrate Negative, Urine Bilirubin Negative, Urine Urobilinogen 0.2, Ur Leukocyte Esterase Trace, Urine RBC 3-5, Urine WBC Occasional, Amorphous Sediment 1+, Urine Bacteria 1+, Urine Mucus 1+ 10/02/20 02:50: Lactate 1.0 Result diagrams: 10/02/20 00:30 10/02/20 00:30 Orders (Tests/Meds): ED MEDICATIONS Generic Name Dose Route Start Last Admin Trade Name Freq PRN Reason Stop Dose Admin Sodium Chloride 1,000 mls @ 999 mls/hr 10/02/20 01:45 10/02/20 01:52 Sod Chlor 0.9% 1000ml Bag IV 10/02/20 02:45 999 mls/hr .Q1H1M KATHY Administration Sodium Chloride 1,000 mls @ 999 mls/hr 10/02/20 03:45 10/02/20 03:40 Sod Chlor 0.9% 1000ml Bag IV 10/02/20 04:45 999 mls/hr .Q1H1M KATHY Administration ORDERS Category Date Time Status CT cervical spine wo con Stat Cat Scan 10/02/20 00:[address] head/brain wo
[2020-10-02 01:18] LABS: Amorphous Sediment,Urine 1+ /lpf; Bacteria,Urine 1+ /lpf; Mucus,Urine 1+ /lpf; WBC,Urine Occasional #/hpf (0-3)
[2020-10-02 01:19] LABS: Chloride 105 mmol/L (98-107); Sodium 136 mmol/L (136-145)
[2020-10-02 01:20] LABS: Potassium 3.8 mmoL/L (3.5-5.1)
[2020-10-02 01:22] LABS: Alanine Aminotransferase 11 U/L (12-78); Albumin Level 3.8 g/dl (3.5-5.0); Alkaline Phosphatase 117 U/L (38-126); Anion Gap 12.8 mEq/L (5-15); Aspartate Amino Transferase 18 U/L (17-59); Bilirubin,Total 0.5 mg/dl (0.2-1.3); Blood Urea Nitrogen 47 mg/dl (9-20); Calcium 9.3 mg/dl (8.4-10.2); Carbon Dioxide 22 mmol/L (22.0-30.0); Creatine Kinase 41 U/L (55-170); Creatinine Clearance Estimated 38 mL/min (50-200); Estimated Glomerular Filt Rate 32 ml/min (>60); GFR (African American) 39 ML/MIN (>60); Glucose 253 mg/dl (74-100)
[2020-10-02 01:23] LABS: Albumin/Globulin Ratio 1.1 (1.1-1.8); Globulin 3.6 g/dL (1.3-3.2); Total Protein,Serum 7.4 g/dl (6.3-8.2)
[2020-10-02 01:28] LABS: C-Reactive Protein 71.1 mg/L (0-4)
[2020-10-02 01:50] LABS: Erythrocyte Sedimentation Rate 127 mm/hr (0-20)
[2020-10-02 01:53] LABS: Lymphocytes % 18 % (10-50); Monocytes % 8 % (2-9); Neutrophils % 73 % (42-76); Platelet Estimate Normal; Total Cells Counted 100
[2020-10-02 01:54] LABS: Stomatocytes 1+
--- NOTE | 2020-10-02 01:59 | ECG_ITS ---
APPROVED REPORT Exam: Resting ECG HR:94 bpm ECG Measurements Heart Rate 94 AXES SC 214 P 39 QRSd 70 QRS -11 QT 368 T 54 QTc 460 Conclusion Sinus rhythm with marked sinus arrhythmia with 1st degree AV block with occasional premature ventricular complexes Prolonged QT Abnormal ECG Electronically signed by : Pedro Pack, 10/02/2020 17:46:31
[2020-10-02 03:16] LABS: Procalcitonin 0.266 ng/mL (0.0-2.0)
--- NOTE | 2020-10-02 03:49 | PC.NURSE ---
Pt has been discharged, I attempted to contact his with no answer to either the cell phone or house phone. Will continue to reach her.
--- NOTE | 2020-10-02 04:28 | PC.NURSE ---
I was able to get a hold of pt's and she is going to come and get pt
== END 2020-10-02 05:09 | disposition home or self-care (01) ==
PROVIDERS: Emergency Provider Emergency Medicine; PCP Family Medicine
DX: R55 Syncope and collapse; R65.10 Systemic inflammatory response syndrome (SIRS) of non-infectious origin without acute organ dysfunction; E11.65 Type 2 diabetes mellitus with hyperglycemia; D64.9 Anemia, unspecified; N28.9 Disorder of kidney and ureter, unspecified; E78.5 Hyperlipidemia, unspecified; I10 Essential (primary) hypertension; Z79.899 Other long term (current) drug therapy; W19.XXXA Unspecified fall, initial encounter
CPT/HCPCS: 70450; 71045; 72125; 72170; 73110; 80053; 81001; 82550; 83605; 84145; 85007; 85025; 85651; 86140; 87040; 93005; 96365; 96366; 99284; U0003

== ENCOUNTER 2020-11-19 13:00 | Outpatient (RCR) | payer MEDICARE, SELFPAY ==
--- NOTE | 2020-10-21 09:38 | HMH.PTOPWND ---
Rehab Outpt Wound Evaluation Rehab OP Wound Evaluation Start: 10/21/20 09:11 Freq: Status: Active Protocol: Document 10/21/20 09:31 ARMAAN (Rec: 10/21/20 09:37 PHOSHAYLA [id number]) Electronically Signed By Jose Elias Wright, PT 10/21/20 09:31 Subjective/History History History Pt is 85 yowm who presents with c/o increased pain and edema to the R LE x ~ 1 mo with insidious onset of symptoms. He did have partial R 2nd toe amputation performed ~ 2 mos ago, but has had no complications since then. He reports is worst in the calf and lower leg. He presents with 2+ pitting edema throughout the R foot and lower leg. He has hx of DM-II, HTN, HL, PAD. Subjective Subjective Pain 4-5/10 this date. Tenderness to palpation= 2/4 Lymphedema Eval Classification of Lymphedema Secondary Lymphedema Yes Stemmer's sign Stemmer's Sign yes Stage of Lymphedema Lymphedema stages Stage II (Pitting edema, increased fibrosis w/ decreased pitting) Skin Changes Dry Skin Yes Taut, Shiny Skin Yes Skin Folds Yes Redness Yes Brittle Uneven Nails Yes Discoloration of Skin Yes Other Changes Yes Pain Scale Pain Scale (0-10) 5 Affected Extremities Areas Affected by Lymphedema/Edema Right Lower Extremity,Left Lower Extremity Manual Lymphatic Drainage Treatment Area MLD Treatment Area Right Lower Extremity,Left Lower Extremity Wound Problems/Impairments Impairments Problems/Impairmments Palpation Tenderness,Impaired Endurance,Impaired Transfers, Impaired Gait Pattern,Impaired Walking,Impaired Standing, Impaired Household Care, Increased Edema,Lymphedema Present,Wound Care Needs, Subjective C/O Pain,Impaired Self Care/Self Management Prognosis Rehab Potential Good Clinical Impression Consistent with Diagnosis Yes Short Term Goals Number of Weeks 4 Decreased Palpation Tenderness 1/4 Decrease Edema
== END 2020-11-19 13:05 | disposition home or self-care (01) ==
LOC: PT 13:00
PROVIDERS: PCP Family Medicine; Visit Provider Family Medicine
DX: L03.115 Cellulitis of right lower limb (principal); I89.0 Lymphedema, not elsewhere classified
CPT/HCPCS: 97110; 97140; 97162

== ENCOUNTER → 2021-01-07 16:54 | Outpatient (CLI) | payer MEDICARE, SELFPAY | PROVIDERS: PCP Family Medicine; Visit Provider Podiatrist | DX: E11.621 Type 2 diabetes mellitus with foot ulcer (principal); Z79.4 Long term (current) use of insulin | CPT/HCPCS: 87070; 87077; 87186; 87205 ==

== ENCOUNTER → 2021-01-08 13:54 | Outpatient (CLI) | payer MEDICARE, SELFPAY ==
--- NOTE | 2021-01-08 14:02 | XR_ITS ---
PROCEDURE: XR FOOT WT BEARING LT 3V CLINICAL INDICATION: DM Ulcer Pain COMPARISON: CR XR FOOT WT BEARING LT 3V from 03/31/2019 CR XR FOOT WT BEARING RT 3V from 12/12/2019 CR XR FOOT WT BEARING RT 3V from 04/02/2020 CR XR FOOT WT BEARING RT 3V from 07/29/2020 CR XR FOOT RT MIN 3V from 08/23/2020 FINDINGS: Osteoarthritic changes are present at the 1st metatarsophalangeal joint. No bony destructive process apparent. Achilles enthesophyte and calcaneal spur noted as before with some minimal calcification of the plantar fascia posteriorly. Vascular calcifications are present. Other findings:None. IMPRESSION: Mild osteoarthritic changes, no acute finding. Dictated by: Nicholas Thompson MD 01/08/2021 15:13 Nicholas Thompson MD in [place] 01/08/2021 15:13
--- NOTE | 2021-01-08 14:02 | XR_ITS ---
PROCEDURE: XR FOOT WT BEARING RT 3V CLINICAL INDICATION: DM ulcer Pain, diabetic ulcer COMPARISON: No exams were available for comparison FINDINGS: Erosive changes are present involving the distal and medial aspect of the 1st metatarsal consistent with osteomyelitis. Defect tear measures 12 by 6 mm and has developed since 08/23/2020. Bandage artifact is present at this region. There is prominent calcaneal spur and Achilles enthesophyte. Other findings:None. IMPRESSION: Lytic defect of the distal and medial aspect of the 1st metatarsal consistent with acute osteomyelitis. Dictated by: Nicholas Thompson MD 01/08/2021 15:16 Nicholas Thompson MD in [facility] 01/08/2021 15:16
[2021-01-08 15:10] LABS: Basophils # 0.1 K/mm3 (0-0.2); Basophils % 0.9 % (0.1-2.0); Eosinophils # 0.1 K/mm3 (0.0-0.4); Hematocrit 28.1 % (42.0-52.0); Hemoglobin 9.3 g/dL (14.1-18.0); Lymphocytes # 1.1 K/mm3 (0.7-4.5); Lymphocytes % 17.8 % (10-50); Mean Corpuscular HGB Conc 33.1 g/dL (31.8-35.4); Mean Corpuscular Hemoglobin 27.8 pg (27.0-31.2); Mean Corpuscular Volume 84.1 fl (80-94); Mean Platelet Volume 11.5 fl (7.4-10.4); Monocytes # 0.8 K/mm3 (0.1-1.0); Monocytes % 12.7 % (1.7-9.3); Neutrophils # 4.3 K/mm3 (1.8-7.8); Neutrophils % 67.5 % (37.0-80.0); Platelet Count 105 K/mm3 (142-424); Red Blood Count 3.34 M/mm3 (4.60-6.20); Red Cell Distribution Width 17.5 % (11.5-17.5); White Blood Count 6.4 K/mm3 (4.8-10.8)
[2021-01-08 15:17] LABS: Alanine Aminotransferase 9 U/L (12-78); Albumin Level 3.8 g/dl (3.5-5.0); Albumin/Globulin Ratio 1.2 (1.1-1.8); Alkaline Phosphatase 99 U/L (38-126); Anion Gap 14.3 mEq/L (5-15); Aspartate Amino Transferase 20 U/L (17-59); Bilirubin,Total 0.5 mg/dl (0.2-1.3); Blood Urea Nitrogen 38 mg/dl (9-20); Calcium 8.8 mg/dl (8.4-10.2); Carbon Dioxide 25 mmol/L (22.0-30.0); Chloride 105 mmol/L (98-107); Estimated Glomerular Filt Rate 34 ml/min (>60); GFR (African American) 41 ML/MIN (>60); Globulin 3.1 g/dL (1.3-3.2); Glucose 168 mg/dl (74-100); Potassium 4.3 mmoL/L (3.5-5.1); Sodium 140 mmol/L (136-145); Total Protein,Serum 6.9 g/dl (6.3-8.2)
[2021-01-08 15:22] LABS: C-Reactive Protein 39.1 mg/L (0-4)
[2021-01-08 15:38] LABS: Erythrocyte Sedimentation Rate 125 mm/hr (0-20)
[2021-01-08 16:53] LABS: Hemoglobin A1C 8.4 % (4.0-6.0)
== END ==
PROVIDERS: PCP Family Medicine; Visit Provider Podiatrist
DX: E11.621 Type 2 diabetes mellitus with foot ulcer; L97.519 Non-pressure chronic ulcer of other part of right foot with unspecified severity; L97.521 Non-pressure chronic ulcer of other part of left foot limited to breakdown of skin; W19.XXXA Unspecified fall, initial encounter
CPT/HCPCS: 36415; 73630; 80053; 83036; 85025; 85651; 86140

== ENCOUNTER 2021-01-30 14:00 | Outpatient (RCR) | payer MEDICARE, SELFPAY ==
--- NOTE | 2021-01-15 16:28 | [facility].PTOPWND ---
Rehab Outpt Wound Evaluation Rehab OP Wound Evaluation Start: 01/15/21 16:15 Freq: Status: Active Protocol: Document 01/15/21 16:16 [email or web address] (Rec: 01/15/21 16:28 [email or web address] [id number]) Electronically Signed By Hi Dumont PT 01/15/21 16:16 Subjective/History History History This is the initial Physical Therapy wound clinic evaluation for Santana Castanon. Pt is an 85 y/o male referred to PT for wound care on non- healing DFU's. Pt wounds began ~ 2-3 months ago per son . Pt is not great historian and unable to give progress of disease. Pt is seeing Dr. Barr DPM for foot care and additional wound care. Subjective Subjective Pt c/o TTP in R 5th met head wound Wound Eval Wound Left Distal Toe - 3rd Digit Wound Type Diabetic Foot Ulcer Wound Length (cm) 0.3 Wound Width (cm) 0.2 Wound Bed Appearance Beefy Red Percentage Granulated (%) 100 Surrounding Tissue Temperature Cool Dressing Status Dry & Intact Wound Topical Solution/Irrigant Antibiotic Irrigant Wound Secondary Dressing Type Adhesive Dressing Comment polymem dot Wound Debridement Method Sharps,Forceps Wound Debridement Amount of Tissue Minimal Removed Wound Debridement Result Healthy Tissue Revealed Dressing Change Date 01/15/21 Right Lateral Distal Foot Wound Type Diabetic Foot Ulcer Is This a Chronic Wound Yes Wound Length (cm) 1.5 Wound Width (cm) 3.0 Wound Bed Appearance Beefy Red,Dusky Red Percentage Granulated (%) 50 Drainage Description Serosanguineous Drainage Amount Scant Drainage Odor No Odor Dressing Status Dry & Intact Wound Topical Solution/Irrigant Antibiotic Irrigant Primary Dressing Medicated Gauze Pad Comment ioplex Wound Secondary Dressing Type Absorbant Pad Comment optifoam Wound Debridement Method Sharps,Forceps Wound Debridement Amount of Tissue Moderate Removed Wound Debridement Result Healthy Tissue Revealed Dressing Change Date 01/15/21 Dressing Change Patient Tolerance Tolerated Well Wound Problems/Impairments Impairments Problems/Impairmments Wound Care Needs,Impaired Self
== END 2021-01-30 14:05 | disposition home or self-care (01) ==
LOC: PT 14:00
PROVIDERS: PCP Family Medicine; Visit Provider Podiatrist
DX: E11.621 Type 2 diabetes mellitus with foot ulcer (principal); L97.919 Non-pressure chronic ulcer of unspecified part of right lower leg with unspecified severity; L97.521 Non-pressure chronic ulcer of other part of left foot limited to breakdown of skin; L97.519 Non-pressure chronic ulcer of other part of right foot with unspecified severity; Z79.4 Long term (current) use of insulin
CPT/HCPCS: 97162; 97597